=== PATIENT | female | born 1965 | race Caucasian/White ===

== ENCOUNTER 2021-01-08 12:36 | Inpatient (IN) | payer OTHER ==
[2021-01-08] MEDS ORDERED: SODIUM CHLORIDE 1,000 ML IV STA ×4 (12:59→18:54)
[2021-01-08 14:13] LABS: HEMATOCRIT 36.4 % (32.4-45.2); HEMOGLOBIN 12.5 GM/dl (10.7-15.3); MCH 32.3 pg (25.7-33.7); MCHC 34.2 g/dl (32.0-36.0); MEAN CELL VOLUME 94.3 fl (80-96); MEAN PLT VOLUME 7.1 fl (7.5-11.1); PLATELET COUNT 693 K/MM3 (134-434); RBC 3.86 M/mm3 (3.60-5.2); RDW 14.5 % (11.6-15.6); WHITE BLOOD COUNT 26.9 K/mm3 (4.0-10.8)
[2021-01-08 14:14] LABS: ADD RBC MORPHOLOGY YES
[2021-01-08 14:25] LABS: ALBUMIN 2.3 g/dl (3.4-5.0); BILIRUBIN,TOTAL 0.7 mg/dl (0.2-1); CALCIUM 8.7 mg/dl (8.5-10); CREATININE 1.8 mg/dl (0.55-1.3); TOT PROT 5.6 g/dl (6.4-8.2)
[2021-01-08] MEDS ORDERED: PIPERACILLIN/TAZOB 2.25 GM 2.25 GM in DEXTROSE 5%-WATER - 50 ML IVPB ONE (14:31)
[2021-01-08] MEDS ORDERED: PIPERACILLIN/TAZOBACTAM 2.25 GM VIAL IVPB ONE (14:54)
[2021-01-08] MEDS ORDERED: DEXTROSE 5%-WATER - 50 ML IVPB ONE (14:54)
[2021-01-08 14:59] LABS: ACTIVATED PTT 24.3 SECONDS (25.2-36.5)
[2021-01-08 15:03] LABS: INR 1.15 (0.82-1.09); PROTHROMBIN TIME (PATIENT) 12.8 SEC (10.2-13.0)
[2021-01-08 16:51] LABS: LACTIC ACID 2.6 mmol/L (0.4-2.0)
[2021-01-08 16:59] LABS: HEMATOCRIT 30.5 % (32.4-45.2); HEMOGLOBIN 10.2 GM/dl (10.7-15.3); MCH 31.5 pg (25.7-33.7); MCHC 33.4 g/dl (32.0-36.0); MEAN CELL VOLUME 94.3 fl (80-96); MEAN PLT VOLUME 7.1 fl (7.5-11.1); PLATELET COUNT 496 K/MM3 (134-434); RBC 3.24 M/mm3 (3.60-5.2); RDW 13.9 % (11.6-15.6); WHITE BLOOD COUNT 21.6 K/mm3 (4.0-10.8)
[2021-01-08 17:05] LABS: ALBUMIN 1.9 g/dl (3.4-5.0); BILIRUBIN,TOTAL 0.6 mg/dl (0.2-1); CALCIUM 7.7 mg/dl (8.5-10); CREATININE 1.5 mg/dl (0.55-1.3); TOT PROT 4.4 g/dl (6.4-8.2)
[2021-01-08] MEDS ORDERED: ACETAMINOPHEN INJECTION 100 ML IVPB ONE (17:58)
[2021-01-08] MEDS ORDERED: ACETAMINOPHEN 1000 MG/100 ML VIAL (NON FORMULARY) IVPB ONE (18:00)
[2021-01-08 18:29] LABS: PLATELET ESTIMATE SLT INCREASE
[2021-01-08] MEDS ORDERED: VANCOMYCIN 1 GM in D5W (PRE-DOCKED) 1,000 MG/250 ML IVPB ONE (21:22)
[2021-01-08] MEDS ORDERED: MUPIROCIN 2% TOPICAL OINTMENT FOR DECOLONIZATION NS SCH (22:00)
[2021-01-08] MEDS ORDERED: LACTATED RINGERS SOLUTION 1000 ML INFUS.BAG IV ONE (23:45)
[2021-01-09] MEDS ORDERED: VASOPRESSIN 40 UNITS in SODIUM CHLORIDE 98 ML IVPB SCH (02:15)
[2021-01-09] MEDS ORDERED: PIPERACILLIN/TAZOBACTAM 3.375 GM VIAL IVPB ONE ×2 (02:33→09:12)
[2021-01-09] MEDS ORDERED: DEXTROSE 5%-WATER - 50 ML IVPB ONE ×3 (02:34→16:29)
[2021-01-09] MEDS ORDERED: VASOPRESSIN 20 UNITS/ML VIAL IV ONE (02:34)
[2021-01-09] MEDS: PIPERACILLIN/TAZOB 3.375 GM 3.375 GM in DEXTROSE 5%-WATER - 50 ML IVPB SCH ×4 (02:45→19:58)
[2021-01-09] MEDS: MUPIROCIN 2% TOPICAL OINTMENT FOR DECOLONIZATION NS SCH ×3 (03:13→21:41)
[2021-01-09] MEDS ORDERED: LOPERAMIDE HCL 1 MG/5 ML UNIT DOSE CUP PO ONE (03:30)
[2021-01-09] MEDS ORDERED: PT OWN MED DRAWER 7, Y5N ONE ×2 (05:05→21:36)
[2021-01-09] MEDS: HEPARIN NA (PORCINE) 5,000 UNITS/ML 1ML VIAL SQ SCH ×3 (05:37→21:40)
[2021-01-09] MEDS: LORazepam 1 MG TABLET PO PRN ×2 (06:37→16:49)
[2021-01-09] MEDS ORDERED: LORazepam 1 MG TABLET PO SCH (10:00)
[2021-01-09] MEDS ORDERED: LACTATED RINGERS SOLUTION 1,000 ML/1,000 ML INFUS.BAG IV SCH (10:30)
[2021-01-09] MEDS ORDERED: ACETAMINOPHEN 1000 MG/100 ML VIAL (NON FORMULARY) IVPB ONE ×2 (12:04→18:19)
[2021-01-09] MEDS ORDERED: DICYCLOMINE HCL 10 MG CAPSULE PO ONE (14:30)
[2021-01-09] MEDS: POLYETHYLENE GLYCOL 3350 119 GM BTL PO SCH ×3 (15:01→22:00)
[2021-01-09] MEDS: SODIUM CHLORIDE 1,000 ML IV SCH (15:01)
[2021-01-09] MEDS ORDERED: PIPERACILLIN/TAZOBACTAM 2.25 GM VIAL IVPB ONE (16:29)
[2021-01-09] MEDS ORDERED: NOREPINEPHRINE BITARTRATE 4 MG/4 ML ML IV ONE (16:38)
[2021-01-09] MEDS: NOREPINEPHRINE NS PREMIX 8,000 MCG/500 ML BAG IVPB SCH (16:49)
[2021-01-09] MEDS: PIPERACILLIN/TAZOB 2.25 GM 2.25 GM in DEXTROSE 5%-WATER - 50 ML IVPB SCH (17:12)
[2021-01-09] MEDS: CHLORHEXIDINE GLUCONATE 4% CLEANSER FOR DECOLONIZATION TP SCH (21:41)
[2021-01-09] MEDS ORDERED: CHLORHEXIDINE GLUCONATE 4% CLEANSER FOR DECOLONIZATION TP SCH (22:00)
[2021-01-10] MEDS ORDERED: PIPERACILLIN/TAZOBACTAM 2.25 GM VIAL IVPB ONE ×2 (00:23→09:18)
[2021-01-10] MEDS ORDERED: DEXTROSE 5%-WATER - 50 ML IVPB ONE ×3 (00:23→13:25)
[2021-01-10] MEDS: LORazepam 1 MG TABLET PO PRN (00:29)
[2021-01-10] MEDS: SODIUM CHLORIDE 1,000 ML IV SCH (00:36)
[2021-01-10] MEDS: PIPERACILLIN/TAZOB 2.25 GM 2.25 GM in DEXTROSE 5%-WATER - 50 ML IVPB SCH ×2 (01:05→09:43)
[2021-01-10] MEDS ORDERED: PT OWN MED DRAWER 7, Y5N ONE ×2 (06:00→21:28)
[2021-01-10] MEDS: HEPARIN NA (PORCINE) 5,000 UNITS/ML 1ML VIAL SQ SCH ×3 (06:06→21:33)
[2021-01-10] MEDS: VANCOMYCIN 250 MG/5 ML ORAL SOLUTION PO SCH ×3 (06:16→17:57)
[2021-01-10 06:48] LABS: BASO % 0.1 % (0-2.0); EOS % 0.2 % (0-4.5); HEMATOCRIT 31.1 % (32.4-45.2); HEMOGLOBIN 10.6 GM/dL (10.7-15.3); LYMPH % 3.6 % (8-40); MCH 31.8 pg (25.7-33.7); MCHC 33.9 g/dl (32.0-36.0); MEAN CELL VOLUME 93.8 fl (80-96); MEAN PLT VOLUME 7.1 fl (7.5-11.1); MONO % 9.1 % (3.8-10.2); PLATELET COUNT 533 K/MM3 (134-434); RBC 3.32 M/mm3 (3.60-5.2); RDW 14.5 % (11.6-15.6); WHITE BLOOD COUNT 11.6 K/mm3 (4.0-10.0)
[2021-01-10 07:06] LABS: ALBUMIN 1.8 g/dl (3.4-5.0); BLOOD UREA NITROGEN 27.1 mg/dL (7-18)
[2021-01-10 07:07] LABS: CALCIUM 8.3 mg/dL (8.5-10.1)
[2021-01-10 07:08] LABS: MAGNESIUM 2.1 mg/dL (1.8-2.4)
[2021-01-10 07:09] LABS: CREATININE 0.6 mg/dL (0.55-1.3); PHOSPHOROUS 2.3 mg/dL (2.5-4.9)
[2021-01-10 07:10] LABS: BILIRUBIN,TOTAL 0.8 mg/dL (0.2-1); TOT PROT 4.5 g/dl (6.4-8.2)
[2021-01-10] MEDS: MUPIROCIN 2% TOPICAL OINTMENT FOR DECOLONIZATION NS SCH ×2 (09:44→21:34)
[2021-01-10] MEDS ORDERED: LACTATED RINGERS SOLUTION 1000 ML INFUS.BAG IV STA ×3 (10:14→12:13)
[2021-01-10] MEDS: POLYETHYLENE GLYCOL 3350 119 GM BTL PO SCH ×2 (10:23→21:33)
[2021-01-10] MEDS ORDERED: LORazepam 2 MG/ML SDV VIAL IVPUSH ONE (12:30)
[2021-01-10] MEDS: NAPH,MB-DB/K PH,MBDB POWDER PACKET PO SCH ×3 (12:45→21:33)
[2021-01-10] MEDS ORDERED: LACTATED RINGERS SOLUTION 1,000 ML/1,000 ML INFUS.BAG IV STA ×2 (13:14→16:15)
[2021-01-10] MEDS ORDERED: cefTRIAXone SODIUM 1 GM VIAL ONE (13:25)
[2021-01-10] MEDS: LACTATED RINGERS SOLUTION 1,000 ML/1,000 ML INFUS.BAG IV SCH (13:39)
[2021-01-10] MEDS: CEFTRIAXONE 1 GM in DEXTROSE 5%-WATER - 50 ML IVPB SCH (15:12)
[2021-01-10] MEDS ORDERED: LORazepam 2 MG/ML SDV VIAL ONE (17:56)
[2021-01-10] MEDS: NOREPINEPHRINE NS PREMIX 8,000 MCG/500 ML BAG IVPB SCH (17:57)
[2021-01-10] MEDS ORDERED: ONDANSETRON 4 MG/2 ML VIAL IVPUSH STA (19:55)
[2021-01-10] MEDS ORDERED: DEXMEDETOMIDINE IN 0.9 % NACL 400 MCG/100 ML VIAL IVPB SCH (20:00)
[2021-01-10] MEDS: CHLORHEXIDINE GLUCONATE 4% CLEANSER FOR DECOLONIZATION TP SCH (21:34)
[2021-01-11] MEDS: VANCOMYCIN 250 MG/5 ML ORAL SOLUTION PO SCH ×5 (00:10→23:00)
[2021-01-11] MEDS: LACTATED RINGERS SOLUTION 1,000 ML/1,000 ML INFUS.BAG IV SCH ×2 (02:15→09:33)
[2021-01-11] MEDS: HEPARIN NA (PORCINE) 5,000 UNITS/ML 1ML VIAL SQ SCH ×3 (05:35→21:20)
[2021-01-11 06:26] LABS: CALCIUM 7.9 mg/dL (8.5-10.1)
[2021-01-11 06:28] LABS: BLOOD UREA NITROGEN 21.5 mg/dL (7-18); MAGNESIUM 1.7 mg/dL (1.8-2.4)
[2021-01-11 06:31] LABS: CREATININE 0.6 mg/dL (0.55-1.3); PHOSPHOROUS 2.6 mg/dL (2.5-4.9)
[2021-01-11 06:32] LABS: BILIRUBIN,TOTAL 0.5 mg/dL (0.2-1)
[2021-01-11] MEDS: NOREPINEPHRINE NS PREMIX 8,000 MCG/500 ML BAG IVPB SCH ×2 (06:32→20:00)
[2021-01-11 06:33] LABS: TOT PROT 3.9 g/dl (6.4-8.2)
[2021-01-11] MEDS ORDERED: LACTATED RINGERS SOLUTION 1,000 ML/1,000 ML INFUS.BAG IV STA (06:35)
[2021-01-11 06:38] LABS: ALBUMIN 1.4 g/dl (3.4-5.0)
[2021-01-11] MEDS ORDERED: DEXTROSE 5%-WATER - 50 ML IVPB ONE (09:30)
[2021-01-11] MEDS ORDERED: cefTRIAXone SODIUM 1 GM VIAL ONE (09:30)
[2021-01-11] MEDS: POLYETHYLENE GLYCOL 3350 119 GM BTL PO SCH ×2 (09:33→21:03)
[2021-01-11] MEDS: MUPIROCIN 2% TOPICAL OINTMENT FOR DECOLONIZATION NS SCH ×2 (09:33→21:22)
[2021-01-11] MEDS: CEFTRIAXONE 1 GM in DEXTROSE 5%-WATER - 50 ML IVPB SCH (09:33)
[2021-01-11] MEDS ORDERED: SODIUM CHLORIDE 0.9% 500 ML INFUS.BAG IV ONE (09:52)
[2021-01-11] MEDS ORDERED: MAGNESIUM SULF 50% (8.12 MEQ/2 ML-1 GM VIAL) IVPB ONE (11:00)
[2021-01-11] MEDS ORDERED: VANCOMYCIN 250 MG/5 ML ORAL SOLUTION PO SCH (12:00)
[2021-01-11] MEDS ORDERED: VASOPRESSIN 40 UNITS in SODIUM CHLORIDE 98 ML IVPB SCH (12:15)
[2021-01-11] MEDS: ACETAMINOPHEN 325 MG TABLET (FP) PO PRN (12:40)
[2021-01-11] MEDS ORDERED: PT OWN MED DRAWER 7, Y5N ONE (13:17)
[2021-01-11] MEDS: VASOPRESSIN 40 UNITS in SODIUM CHLORIDE 98 ML IVPB SCH (13:30)
[2021-01-11 14:36] LABS: HEMATOCRIT 29.9 % (32.4-45.2); HEMOGLOBIN 9.8 GM/dL (10.7-15.3); MCH 31.5 pg (25.7-33.7); MCHC 32.7 g/dl (32.0-36.0); MEAN CELL VOLUME 96.3 fl (80-96); PLATELET COUNT 473 K/MM3 (134-434); RDW 14.7 % (11.6-15.6); WHITE BLOOD COUNT 15.8 K/mm3 (4.0-10.0)
[2021-01-11] MEDS: ONDANSETRON 4 MG/2 ML VIAL IVPUSH PRN (15:00)
[2021-01-11 18:41] LABS: CALCIUM 8.1 mg/dL (8.5-10.1)
[2021-01-11 18:42] LABS: BLOOD UREA NITROGEN 17.4 mg/dL (7-18); MAGNESIUM 2.1 mg/dL (1.8-2.4)
[2021-01-11 18:45] LABS: CREATININE 0.4 mg/dL (0.55-1.3)
[2021-01-11] MEDS: LORazepam 1 MG TABLET PO PRN (21:20)
[2021-01-11] MEDS: MAG HYDROX/AL HYDROX/SIMETH 30 ML UNIT-DOSE CUP PO PRN (21:20)
[2021-01-11] MEDS: CHLORHEXIDINE GLUCONATE 4% CLEANSER FOR DECOLONIZATION TP SCH (21:22)
[2021-01-11] MEDS: MELATONIN 1 MG TABLET PO SCH (23:00)
[2021-01-12] MEDS: LACTATED RINGERS SOLUTION 1,000 ML/1,000 ML INFUS.BAG IV SCH ×2 (00:05→19:41)
[2021-01-12] MEDS: NOREPINEPHRINE NS PREMIX 8,000 MCG/500 ML BAG IVPB SCH ×3 (01:50→19:41)
[2021-01-12] MEDS: VANCOMYCIN 250 MG/5 ML ORAL SOLUTION PO SCH ×3 (05:48→17:42)
[2021-01-12] MEDS: HEPARIN NA (PORCINE) 5,000 UNITS/ML 1ML VIAL SQ SCH ×4 (05:48→22:28)
[2021-01-12 06:54] LABS: HEMATOCRIT 27.8 % (32.4-45.2); HEMOGLOBIN 9.4 GM/dL (10.7-15.3); MCH 31.7 pg (25.7-33.7); MCHC 33.8 g/dl (32.0-36.0); MEAN CELL VOLUME 93.5 fl (80-96); MEAN PLT VOLUME 7.1 fl (7.5-11.1); PLATELET COUNT 419 K/MM3 (134-434); RBC 2.97 M/mm3 (3.60-5.2); RDW 14.7 % (11.6-15.6); WHITE BLOOD COUNT 19.5 K/mm3 (4.0-10.0)
[2021-01-12 07:11] LABS: CALCIUM 7.9 mg/dL (8.5-10.1)
[2021-01-12 07:16] LABS: CREATININE 0.4 mg/dL (0.55-1.3)
[2021-01-12 07:18] LABS: MAGNESIUM 1.9 mg/dL (1.8-2.4)
[2021-01-12] MEDS ORDERED: cefTRIAXone SODIUM 1 GM VIAL ONE (08:28)
[2021-01-12] MEDS ORDERED: DEXTROSE 5%-WATER - 50 ML IVPB ONE (08:28)
[2021-01-12] MEDS ORDERED: PT OWN MED DRAWER 7, Y5N ONE ×3 (08:28→20:32)
[2021-01-12] MEDS: MUPIROCIN 2% TOPICAL OINTMENT FOR DECOLONIZATION NS SCH ×2 (09:31→21:38)
[2021-01-12] MEDS: POLYETHYLENE GLYCOL 3350 119 GM BTL PO SCH ×2 (09:31→22:28)
[2021-01-12] MEDS: CEFTRIAXONE 1 GM in DEXTROSE 5%-WATER - 50 ML IVPB SCH (09:31)
[2021-01-12] MEDS ORDERED: NOREPINEPHRINE BITARTRATE 4 MG/4 ML ML IV ONE (12:07)
[2021-01-12] MEDS ORDERED: SODIUM CHLORIDE 1,000 ML IV SCH (14:45)
[2021-01-12] MEDS ORDERED: FLUDROCORTISONE ACETATE 0.1 MG TABLET (FP) PO SCH (15:15)
[2021-01-12] MEDS: HYDROCORTISONE SOD SUCCINATE 100 MG/2 ML VIAL IVPUSH SCH ×2 (15:50→21:38)
[2021-01-12] MEDS: LORazepam 1 MG TABLET PO PRN ×2 (15:50→22:28)
[2021-01-12] MEDS: FLUDROCORTISONE ACETATE 0.1 MG TABLET (FP) PO SCH (15:50)
[2021-01-12] MEDS: VASOPRESSIN 40 UNITS in SODIUM CHLORIDE 98 ML IVPB SCH (16:06)
[2021-01-12] MEDS: CHLORHEXIDINE GLUCONATE 4% CLEANSER FOR DECOLONIZATION TP SCH (21:38)
[2021-01-12] MEDS: MELATONIN 1 MG TABLET PO SCH ×2 (21:39→22:28)
[2021-01-12] MEDS ORDERED: LACTATED RINGERS SOLUTION 1000 ML INFUS.BAG IV ONE (21:40)
[2021-01-12] MEDS ORDERED: SODIUM CHLORIDE 0.9% 500 ML INFUS.BAG IV ONE (21:42)
[2021-01-13] MEDS: VANCOMYCIN 250 MG/5 ML ORAL SOLUTION PO SCH ×6 (00:30→23:19)
[2021-01-13] MEDS: HYDROCORTISONE SOD SUCCINATE 100 MG/2 ML VIAL IVPUSH SCH ×4 (02:44→20:08)
[2021-01-13 03:36] LABS: BASO % 0.1 % (0-2.0); EOS % 0.1 % (0-4.5); HEMATOCRIT 30.4 % (32.4-45.2); HEMOGLOBIN 10.1 GM/dL (10.7-15.3); LYMPH % 1.9 % (8-40); MCH 30.9 pg (25.7-33.7); MCHC 33.3 g/dl (32.0-36.0); MEAN CELL VOLUME 92.9 fl (80-96); MEAN PLT VOLUME 6.6 fl (7.5-11.1); NEUT % 95.9 % (42.8-82.8); PLATELET COUNT 359 K/MM3 (134-434); RBC 3.28 M/mm3 (3.60-5.2); RDW 15.3 % (11.6-15.6); WHITE BLOOD COUNT 20.8 K/mm3 (4.0-10.0)
[2021-01-13 03:44] LABS: INR 1.11 (0.83-1.09); PROTHROMBIN TIME (PATIENT) 13.4 SEC (9.7-13.0)
[2021-01-13 03:51] LABS: ALBUMIN 1.4 g/dl (3.4-5.0); BLOOD UREA NITROGEN 14.7 mg/dL (7-18); CALCIUM 7.6 mg/dL (8.5-10.1); MAGNESIUM 1.9 mg/dL (1.8-2.4)
[2021-01-13 03:54] LABS: CREATININE 0.3 mg/dL (0.55-1.3); PHOSPHOROUS 1.5 mg/dL (2.5-4.9)
[2021-01-13 03:56] LABS: BILIRUBIN,TOTAL 0.3 mg/dL (0.2-1); TOT PROT 3.7 g/dl (6.4-8.2)
[2021-01-13] MEDS: HEPARIN NA (PORCINE) 5,000 UNITS/ML 1ML VIAL SQ SCH ×3 (06:40→22:21)
[2021-01-13] MEDS ORDERED: SODIUM CHLORIDE 1 GM TABLET PO ONE (07:02)
[2021-01-13] MEDS ORDERED: SODIUM CHLORIDE 0.9% 1000 ML INFUS.BAG IV ONE (07:02)
[2021-01-13] MEDS ORDERED: PT OWN MED DRAWER 7, Y5N ONE ×4 (08:31→16:11)
[2021-01-13 09:01] LABS: ANISOCYTOSIS 0; MACROCYTOSIS 0; OVALOCYTE 1+; PLATELET ESTIMATE NORMAL
[2021-01-13] MEDS: FLUDROCORTISONE ACETATE 0.1 MG TABLET (FP) PO SCH (09:36)
[2021-01-13] MEDS: MUPIROCIN 2% TOPICAL OINTMENT FOR DECOLONIZATION NS SCH ×2 (09:39→22:21)
[2021-01-13] MEDS: POLYETHYLENE GLYCOL 3350 119 GM BTL PO SCH ×2 (09:44→22:22)
[2021-01-13] MEDS ORDERED: FUROSEMIDE 40 MG/4 ML INJECTABLE VIAL IVPUSH ONE (10:52)
[2021-01-13] MEDS ORDERED: POTASSIUM PHOSPHATE 30 MM in DEXTROSE 5%-WATER - 250 ML IVPB ONE (10:55)
[2021-01-13] MEDS: SODIUM CHLORIDE 1,000 ML IV SCH (12:01)
[2021-01-13] MEDS ORDERED: SODIUM PHOSPHATE - 40 MM in SODIUM CHLORIDE 500 ML IVPB ONE (12:45)
[2021-01-13 13:16] LABS: CALCIUM 7.9 mg/dL (8.5-10.1)
[2021-01-13] MEDS: VASOPRESSIN 40 UNITS in SODIUM CHLORIDE 98 ML IVPB SCH ×2 (13:18→16:26)
[2021-01-13 13:21] LABS: CREATININE 0.4 mg/dL (0.55-1.3)
[2021-01-13 17:24] LABS: BASO % 0.1 % (0-2.0); HEMATOCRIT 29.6 % (32.4-45.2); LYMPH % 3.1 % (8-40); MCH 31.3 pg (25.7-33.7); MCHC 33.6 g/dl (32.0-36.0); MEAN CELL VOLUME 93.2 fl (80-96); MEAN PLT VOLUME 7.1 fl (7.5-11.1); MONO % 3.1 % (3.8-10.2); NEUT % 93.7 % (42.8-82.8); PLATELET COUNT 318 K/MM3 (134-434); RBC 3.18 M/mm3 (3.60-5.2); RDW 15.3 % (11.6-15.6); WHITE BLOOD COUNT 16.3 K/mm3 (4.0-10.0)
[2021-01-13] MEDS: NOREPINEPHRINE NS PREMIX 8,000 MCG/500 ML BAG IVPB SCH (17:30)
[2021-01-13] MEDS ORDERED: PROPOFOL 20 ML ONE (18:03)
[2021-01-13] MEDS ORDERED: ETOMIDATE 20 MG/10 ML AMPUL IVPUSH ONE (18:03)
[2021-01-13] MEDS ORDERED: MIDAZOLAM HCL 2 MG/2 ML SINGLE DOSE VIAL ONE (18:03)
[2021-01-13] MEDS ORDERED: KETAMINE HCL 200 MG/20 ML VIAL ONE (18:03)
[2021-01-13] MEDS ORDERED: fentaNYL CITRATE 250 MCG/5 ML VIAL ONE (18:03)
[2021-01-13] MEDS ORDERED: SUCCINYLCHOLINE CHLORIDE 200 MG/10 ML SYRINGE ONE (18:03)
[2021-01-13] MEDS ORDERED: ROCURONIUM BROMIDE 50 MG/5 ML SYRINGE ONE (18:03)
[2021-01-13 18:40] LABS: BLOOD UREA NITROGEN 16.9 mg/dL (7-18); CALCIUM 7.7 mg/dL (8.5-10.1); MAGNESIUM 1.9 mg/dL (1.8-2.4)
[2021-01-13 18:41] LABS: ALBUMIN 1.4 g/dl (3.4-5.0)
[2021-01-13 18:45] LABS: BILIRUBIN,TOTAL 0.4 mg/dL (0.2-1); CREATININE 0.4 mg/dL (0.55-1.3); PHOSPHOROUS 2.3 mg/dL (2.5-4.9); TOT PROT 3.6 g/dl (6.4-8.2)
[2021-01-13] MEDS ORDERED: DEXTROSE 5%-WATER - 50 ML IVPB ONE (19:00)
[2021-01-13] MEDS ORDERED: PIPERACILLIN/TAZOBACTAM 3.375 GM VIAL IVPB ONE (19:00)
[2021-01-13] MEDS: PIPERACILLIN/TAZOB 3.375 GM 3.375 GM in DEXTROSE 5%-WATER - 50 ML IVPB SCH (19:40)
[2021-01-13] MEDS: MAG HYDROX/AL HYDROX/SIMETH 30 ML UNIT-DOSE CUP PO PRN (19:41)
[2021-01-13] MEDS: LORazepam 1 MG TABLET PO PRN (19:41)
[2021-01-13] MEDS: CHLORHEXIDINE GLUCONATE 4% CLEANSER FOR DECOLONIZATION TP SCH (22:21)
[2021-01-13] MEDS: MELATONIN 1 MG TABLET PO SCH (22:22)
[2021-01-14] MEDS ORDERED: DEXTROSE 5%-WATER - 50 ML IVPB ONE (00:49)
[2021-01-14] MEDS ORDERED: PIPERACILLIN/TAZOBACTAM 3.375 GM VIAL IVPB ONE (00:49)
[2021-01-14] MEDS: PIPERACILLIN/TAZOB 3.375 GM 3.375 GM in DEXTROSE 5%-WATER - 50 ML IVPB SCH (01:09)
[2021-01-14] MEDS: HYDROCORTISONE SOD SUCCINATE 100 MG/2 ML VIAL IVPUSH SCH ×4 (02:45→20:33)
[2021-01-14] MEDS: HEPARIN NA (PORCINE) 5,000 UNITS/ML 1ML VIAL SQ SCH ×3 (05:00→21:06)
[2021-01-14] MEDS: VANCOMYCIN 250 MG/5 ML ORAL SOLUTION PO SCH ×3 (05:00→17:14)
[2021-01-14] MEDS: MAG HYDROX/AL HYDROX/SIMETH 30 ML UNIT-DOSE CUP PO PRN ×3 (05:00→18:36)
[2021-01-14 06:46] LABS: BASO % 0.1 % (0-2.0); HEMATOCRIT 29.1 % (32.4-45.2); LYMPH % 2.3 % (8-40); MCH 31.5 pg (25.7-33.7); MCHC 34.4 g/dl (32.0-36.0); MEAN CELL VOLUME 91.5 fl (80-96); NEUT % 94.6 % (42.8-82.8); PLATELET COUNT 349 K/MM3 (134-434); RBC 3.18 M/mm3 (3.60-5.2); RDW 15.4 % (11.6-15.6); WHITE BLOOD COUNT 17.4 K/mm3 (4.0-10.0)
[2021-01-14 06:59] LABS: CALCIUM 7.8 mg/dL (8.5-10.1)
[2021-01-14 07:01] LABS: ALBUMIN 1.5 g/dl (3.4-5.0); MAGNESIUM 1.8 mg/dL (1.8-2.4)
[2021-01-14 07:03] LABS: PHOSPHOROUS 2.2 mg/dL (2.5-4.9)
[2021-01-14 07:06] LABS: BILIRUBIN,TOTAL 0.3 mg/dL (0.2-1); TOT PROT 3.7 g/dl (6.4-8.2)
[2021-01-14 07:13] LABS: CREATININE 0.3 mg/dL (0.55-1.3)
[2021-01-14] MEDS ORDERED: PT OWN MED DRAWER 7, Y5N ONE ×2 (08:36→23:44)
[2021-01-14] MEDS: FLUDROCORTISONE ACETATE 0.1 MG TABLET (FP) PO SCH (09:03)
[2021-01-14] MEDS: POLYETHYLENE GLYCOL 3350 119 GM BTL PO SCH ×2 (09:04→21:00)
[2021-01-14] MEDS: NOREPINEPHRINE NS PREMIX 8,000 MCG/500 ML BAG IVPB SCH ×3 (09:04→18:38)
[2021-01-14] MEDS: LORazepam 1 MG TABLET PO PRN ×2 (09:05→20:32)
[2021-01-14 09:10] LABS: ANISOCYTOSIS 0; MACROCYTOSIS 0; PLATELET ESTIMATE NORMAL
[2021-01-14] MEDS ORDERED: POTASSIUM PHOSPHATE 30 MM in DEXTROSE 5%-WATER - 250 ML IVPB ONE (10:00)
[2021-01-14] MEDS: ACETAMINOPHEN 325 MG TABLET (FP) PO PRN (10:34)
[2021-01-14] MEDS ORDERED: SODIUM PHOSPHATE - 20 MM in SODIUM CHLORIDE 250 ML IVPB ONE (13:34)
[2021-01-14] MEDS: SODIUM CHLORIDE 1,000 ML IV SCH (14:01)
[2021-01-14] MEDS: VASOPRESSIN 40 UNITS in SODIUM CHLORIDE 98 ML IVPB SCH ×3 (14:02→22:08)
[2021-01-14] MEDS: CHLORHEXIDINE GLUCONATE 4% CLEANSER FOR DECOLONIZATION TP SCH (21:02)
[2021-01-14] MEDS: MELATONIN 1 MG TABLET PO SCH (21:06)
[2021-01-15] MEDS: SODIUM CHLORIDE 1,000 ML IV SCH ×4 (00:30→13:37)
[2021-01-15] MEDS: VANCOMYCIN 250 MG/5 ML ORAL SOLUTION PO SCH ×4 (00:34→17:57)
[2021-01-15] MEDS ORDERED: VASOPRESSIN 40 UNITS in SODIUM CHLORIDE 98 ML IVPB SCH (01:14)
[2021-01-15] MEDS: HYDROCORTISONE SOD SUCCINATE 100 MG/2 ML VIAL IVPUSH SCH ×4 (02:56→21:34)
[2021-01-15] MEDS: NOREPINEPHRINE NS PREMIX 8,000 MCG/500 ML BAG IVPB SCH ×3 (02:56→17:56)
[2021-01-15] MEDS: VASOPRESSIN 40 UNITS in SODIUM CHLORIDE 98 ML IVPB SCH ×2 (03:25→11:45)
[2021-01-15 06:13] LABS: HEMATOCRIT 28.8 % (32.4-45.2); HEMOGLOBIN 9.8 GM/dL (10.7-15.3); LYMPH % 2.8 % (8-40); MCH 31.5 pg (25.7-33.7); MEAN CELL VOLUME 92.5 fl (80-96); MEAN PLT VOLUME 6.9 fl (7.5-11.1); MONO % 4.8 % (3.8-10.2); NEUT % 92.4 % (42.8-82.8); PLATELET COUNT 306 K/MM3 (134-434); RBC 3.11 M/mm3 (3.60-5.2); RDW 15.4 % (11.6-15.6); WHITE BLOOD COUNT 14.9 K/mm3 (4.0-10.0)
[2021-01-15] MEDS: HEPARIN NA (PORCINE) 5,000 UNITS/ML 1ML VIAL SQ SCH ×3 (06:19→21:11)
[2021-01-15 06:49] LABS: ALBUMIN 1.5 g/dl (3.4-5.0); BLOOD UREA NITROGEN 20.6 mg/dL (7-18); CALCIUM 7.3 mg/dL (8.5-10.1)
[2021-01-15 06:52] LABS: BILIRUBIN,TOTAL 0.2 mg/dL (0.2-1); CREATININE 0.6 mg/dL (0.55-1.3); PHOSPHOROUS 2.3 mg/dL (2.5-4.9)
[2021-01-15 06:53] LABS: TOT PROT 3.6 g/dl (6.4-8.2)
[2021-01-15] MEDS ORDERED: PT OWN MED DRAWER 7, Y5N ONE (08:00)
[2021-01-15 08:29] LABS: ANISOCYTOSIS 0; MACROCYTOSIS 0; PLATELET ESTIMATE NORMAL
[2021-01-15] MEDS: POLYETHYLENE GLYCOL 3350 119 GM BTL PO SCH ×2 (09:23→21:11)
[2021-01-15] MEDS: FLUDROCORTISONE ACETATE 0.1 MG TABLET (FP) PO SCH (09:23)
[2021-01-15] MEDS ORDERED: PANTOPRAZOLE SODIUM 40 MG VIAL IVPUSH SCH (10:15)
[2021-01-15] MEDS ORDERED: NAPH,MB-DB/K PH,MBDB POWDER PACKET PO ONE (10:30)
[2021-01-15] MEDS: MAG HYDROX/AL HYDROX/SIMETH 30 ML UNIT-DOSE CUP PO PRN (11:45)
[2021-01-15] MEDS ORDERED: SODIUM CHLORIDE 1,000 ML IV STA (11:55)
[2021-01-15] MEDS: ALPRAZolam 0.25 MG TABLET PO PRN ×2 (13:37→21:35)
[2021-01-15] MEDS ORDERED: SODIUM PHOSPHATE - 20 MM in SODIUM CHLORIDE 250 ML IVPB ONE (14:54)
[2021-01-15] MEDS: MELATONIN 1 MG TABLET PO SCH (21:11)
[2021-01-15] MEDS: CHLORHEXIDINE GLUCONATE 4% CLEANSER FOR DECOLONIZATION TP SCH (21:11)
[2021-01-16] MEDS: VANCOMYCIN 250 MG/5 ML ORAL SOLUTION PO SCH ×4 (00:04→18:05)
[2021-01-16] MEDS: ACETAMINOPHEN 325 MG TABLET (FP) PO PRN (01:25)
[2021-01-16] MEDS: ONDANSETRON 4 MG/2 ML VIAL IVPUSH PRN (02:37)
[2021-01-16] MEDS: HYDROCORTISONE SOD SUCCINATE 100 MG/2 ML VIAL IVPUSH SCH ×4 (03:30→21:17)
[2021-01-16] MEDS: VASOPRESSIN 40 UNITS in SODIUM CHLORIDE 98 ML IVPB SCH (03:31)
[2021-01-16] MEDS ORDERED: PT OWN MED DRAWER 7, Y5N ONE ×6 (05:32→21:25)
[2021-01-16] MEDS: HEPARIN NA (PORCINE) 5,000 UNITS/ML 1ML VIAL SQ SCH ×3 (06:36→21:17)
[2021-01-16 07:21] LABS: BASO % 0.1 % (0-2.0); HEMATOCRIT 30.8 % (32.4-45.2); HEMOGLOBIN 10.1 GM/dL (10.7-15.3); LYMPH % 1.7 % (8-40); MCH 30.8 pg (25.7-33.7); MEAN CELL VOLUME 93.4 fl (80-96); MEAN PLT VOLUME 7.4 fl (7.5-11.1); MONO % 4.2 % (3.8-10.2); PLATELET COUNT 308 K/MM3 (134-434); RDW 15.6 % (11.6-15.6); WHITE BLOOD COUNT 18.1 K/mm3 (4.0-10.0)
[2021-01-16 07:27] LABS: ALBUMIN 1.6 g/dl (3.4-5.0); BLOOD UREA NITROGEN 21.3 mg/dL (7-18); CALCIUM 7.7 mg/dL (8.5-10.1); MAGNESIUM 2.1 mg/dL (1.8-2.4)
[2021-01-16 07:30] LABS: CREATININE 0.7 mg/dL (0.55-1.3); PHOSPHOROUS 2.7 mg/dL (2.5-4.9)
[2021-01-16 07:32] LABS: TOT PROT 3.8 g/dl (6.4-8.2)
[2021-01-16 07:35] LABS: BILIRUBIN,TOTAL 0.2 mg/dL (0.2-1)
[2021-01-16] MEDS: ALPRAZolam 0.25 MG TABLET PO PRN ×2 (09:42→20:15)
[2021-01-16] MEDS: POLYETHYLENE GLYCOL 3350 119 GM BTL PO SCH ×2 (09:43→21:18)
[2021-01-16] MEDS: FAMOTIDINE 40 MG/5 ML ORAL SUSPENSION PO SCH (09:43)
[2021-01-16] MEDS: FLUDROCORTISONE ACETATE 0.1 MG TABLET (FP) PO SCH (09:49)
[2021-01-16] MEDS ORDERED: SODIUM CHLORIDE 1,000 ML IV STA (10:08)
[2021-01-16] MEDS ORDERED: SODIUM CHLORIDE 500 ML IV STA (10:08)
[2021-01-16 10:49] LABS: ANISOCYTOSIS 0; MACROCYTOSIS 0; PLATELET ESTIMATE NORMAL; TOXIC GRANULATION 2+
[2021-01-16] MEDS: SODIUM CHLORIDE 1,000 ML IV SCH (12:39)
[2021-01-16] MEDS: NOREPINEPHRINE NS PREMIX 8,000 MCG/500 ML BAG IVPB SCH (16:00)
[2021-01-16] MEDS: CHLORHEXIDINE GLUCONATE 4% CLEANSER FOR DECOLONIZATION TP SCH (21:17)
[2021-01-16] MEDS: MELATONIN 1 MG TABLET PO SCH (21:17)
[2021-01-17 00:52] LABS: EPI CELLS 2 /uL (0-25.1); HYALINE CASTS 8 /uL (0-3.1); URINE APPEARANCE TURBID; URINE BACTERIA 55 /uL (0-1359); URINE BILIRUBIN NEGATIVE (NEGATIVE); URINE COLOR ORANGE; URINE GLUCOSE (UA) NEGATIVE (NEGATIVE); URINE KETONE NEGATIVE (NEGATIVE); URINE LEUK ESTERASE 3+ (NEGATIVE); URINE NITRITE NEGATIVE (NEGATIVE); URINE PROTEIN 2+ (NEGATIVE); URINE UROBILINOGEN 0.2 mg/dL (0.2-1.0); URINE WBC 12012 /uL (0-25.8)
[2021-01-17] MEDS: HYDROCORTISONE SOD SUCCINATE 100 MG/2 ML VIAL IVPUSH SCH ×4 (02:05→23:04)
[2021-01-17 03:21] LABS: URINE RBC 4906 /uL (0-23.9)
[2021-01-17] MEDS: VANCOMYCIN 250 MG/5 ML ORAL SOLUTION PO SCH ×4 (05:36→17:04)
[2021-01-17] MEDS: HEPARIN NA (PORCINE) 5,000 UNITS/ML 1ML VIAL SQ SCH ×3 (05:36→23:05)
[2021-01-17] MEDS: VASOPRESSIN 40 UNITS in SODIUM CHLORIDE 98 ML IVPB SCH ×3 (05:47→12:00)
[2021-01-17] MEDS: ALPRAZolam 0.25 MG TABLET PO PRN ×2 (06:27→17:04)
[2021-01-17] MEDS ORDERED: VASOPRESSIN 20 UNITS/ML VIAL IV ONE (07:25)
[2021-01-17] MEDS: SODIUM CHLORIDE 1,000 ML IV SCH (07:42)
[2021-01-17] MEDS: NOREPINEPHRINE NS PREMIX 8,000 MCG/500 ML BAG IVPB SCH ×3 (07:43→23:05)
[2021-01-17] MEDS ORDERED: PT OWN MED DRAWER 7, Y5N ONE (09:06)
[2021-01-17] MEDS: LACTOBACILLUS ACIDOPHILUS 1 TABLET PO SCH (09:51)
[2021-01-17] MEDS: FLUDROCORTISONE ACETATE 0.1 MG TABLET (FP) PO SCH (09:52)
[2021-01-17] MEDS: FAMOTIDINE 40 MG/5 ML ORAL SUSPENSION PO SCH (09:52)
[2021-01-17] MEDS: POLYETHYLENE GLYCOL 3350 119 GM BTL PO SCH ×2 (09:52→23:06)
[2021-01-17] MEDS: CHLORHEXIDINE GLUCONATE 4% CLEANSER FOR DECOLONIZATION TP SCH (23:05)
[2021-01-17] MEDS: MELATONIN 1 MG TABLET PO SCH (23:06)
[2021-01-18] MEDS: VANCOMYCIN 250 MG/5 ML ORAL SOLUTION PO SCH ×4 (00:28→17:45)
[2021-01-18] MEDS: HYDROCORTISONE SOD SUCCINATE 100 MG/2 ML VIAL IVPUSH SCH ×3 (01:28→17:45)
[2021-01-18] MEDS: SODIUM CHLORIDE 1,000 ML IV SCH ×3 (01:28→16:08)
[2021-01-18] MEDS: ALPRAZolam 0.25 MG TABLET PO PRN ×2 (01:34→09:45)
[2021-01-18] MEDS: VASOPRESSIN 40 UNITS in SODIUM CHLORIDE 98 ML IVPB SCH ×3 (05:34→22:50)
[2021-01-18] MEDS: HEPARIN NA (PORCINE) 5,000 UNITS/ML 1ML VIAL SQ SCH ×3 (05:35→22:45)
[2021-01-18 07:54] LABS: HEMATOCRIT 29.1 % (32.4-45.2); HEMOGLOBIN 9.7 GM/dL (10.7-15.3); MCHC 33.4 g/dl (32.0-36.0); MEAN CELL VOLUME 92.9 fl (80-96); MEAN PLT VOLUME 7.3 fl (7.5-11.1); PLATELET COUNT 278 K/MM3 (134-434); RBC 3.14 M/mm3 (3.60-5.2); RDW 15.4 % (11.6-15.6); WHITE BLOOD COUNT 11.1 K/mm3 (4.0-10.0)
[2021-01-18 08:12] LABS: ALBUMIN 1.6 g/dl (3.4-5.0); CALCIUM 7.9 mg/dL (8.5-10.1)
[2021-01-18 08:13] LABS: BLOOD UREA NITROGEN 17.6 mg/dL (7-18); MAGNESIUM 2.1 mg/dL (1.8-2.4)
[2021-01-18 08:16] LABS: CREATININE 0.2 mg/dL (0.55-1.3); PHOSPHOROUS 1.3 mg/dL (2.5-4.9)
[2021-01-18 08:17] LABS: BILIRUBIN,TOTAL 0.3 mg/dL (0.2-1); TOT PROT 3.7 g/dl (6.4-8.2)
[2021-01-18] MEDS ORDERED: PT OWN MED DRAWER 7, Y5N ONE (09:25)
[2021-01-18] MEDS: FLUDROCORTISONE ACETATE 0.1 MG TABLET (FP) PO SCH (09:45)
[2021-01-18] MEDS: FAMOTIDINE 40 MG/5 ML ORAL SUSPENSION PO SCH (09:45)
[2021-01-18] MEDS: LACTOBACILLUS ACIDOPHILUS 1 TABLET PO SCH (09:45)
[2021-01-18] MEDS: POLYETHYLENE GLYCOL 3350 119 GM BTL PO SCH ×2 (10:09→22:43)
[2021-01-18] MEDS: MIDODRINE HCL 5 MG TABLET PO SCH ×2 (14:30→17:45)
[2021-01-18] MEDS: ALPRAZolam 1 MG TABLET PO PRN (18:30)
[2021-01-18] MEDS: NOREPINEPHRINE NS PREMIX 8,000 MCG/500 ML BAG IVPB SCH (22:43)
[2021-01-18] MEDS: CHLORHEXIDINE GLUCONATE 4% CLEANSER FOR DECOLONIZATION TP SCH (22:45)
[2021-01-18] MEDS: MELATONIN 1 MG TABLET PO SCH (22:50)
[2021-01-19] MEDS: VANCOMYCIN 250 MG/5 ML ORAL SOLUTION PO SCH ×4 (00:03→18:39)
[2021-01-19] MEDS: HYDROCORTISONE SOD SUCCINATE 100 MG/2 ML VIAL IVPUSH SCH ×3 (01:11→18:39)
[2021-01-19] MEDS: ONDANSETRON 4 MG/2 ML VIAL IVPUSH PRN (01:12)
[2021-01-19] MEDS: ALPRAZolam 1 MG TABLET PO PRN ×3 (01:32→17:52)
[2021-01-19] MEDS: VASOPRESSIN 40 UNITS in SODIUM CHLORIDE 98 ML IVPB SCH ×2 (05:13→13:15)
[2021-01-19 07:51] LABS: HEMATOCRIT 27.3 % (32.4-45.2); HEMOGLOBIN 9.3 GM/dL (10.7-15.3); MCH 31.9 pg (25.7-33.7); MCHC 33.9 g/dl (32.0-36.0); MEAN CELL VOLUME 93.9 fl (80-96); MEAN PLT VOLUME 7.3 fl (7.5-11.1); PLATELET COUNT 256 K/MM3 (134-434); RBC 2.91 M/mm3 (3.60-5.2); RDW 15.7 % (11.6-15.6); WHITE BLOOD COUNT 10.4 K/mm3 (4.0-10.0)
[2021-01-19 07:58] LABS: CHLORIDE 109 mmol/L (98-107); SODIUM 135 mmol/L (136-145)
[2021-01-19 08:08] LABS: CALCIUM 7.3 mg/dL (8.5-10.1)
[2021-01-19 08:09] LABS: ALBUMIN 1.6 g/dl (3.4-5.0); ANION GAP 5 MMOL/L (8-16); BLOOD UREA NITROGEN 16.2 mg/dL (7-18); CO2 21 mmol/L (21-32); GLUCOSE,RANDOM 114 mg/dL (74-106); MAGNESIUM 1.9 mg/dL (1.8-2.4)
[2021-01-19 08:11] LABS: SGPT/ALT 33 U/L (13-61)
[2021-01-19 08:12] LABS: PHOSPHOROUS 1.2 mg/dL (2.5-4.9); SGOT/AST 25 U/L (15-37)
[2021-01-19 08:14] LABS: ALK PHOS 53 U/L (45-117); BILIRUBIN,TOTAL 0.2 mg/dL (0.2-1)
[2021-01-19 08:15] LABS: TOT PROT 3.5 g/dl (6.4-8.2)
[2021-01-19 08:42] LABS: CREATININE < 0.2 mg/dL (0.55-1.3)
[2021-01-19] MEDS ORDERED: POTASSIUM PHOSPHATE 30 MM in SODIUM CHLORIDE 250 ML IVPB ONE (08:50)
[2021-01-19] MEDS ORDERED: PT OWN MED DRAWER 7, Y5N ONE (08:57)
[2021-01-19] MEDS: FLUDROCORTISONE ACETATE 0.1 MG TABLET (FP) PO SCH (09:00)
[2021-01-19] MEDS: LACTOBACILLUS ACIDOPHILUS 1 TABLET PO SCH (09:00)
[2021-01-19] MEDS: FAMOTIDINE 40 MG/5 ML ORAL SUSPENSION PO SCH (09:00)
[2021-01-19] MEDS: MIDODRINE HCL 5 MG TABLET PO SCH ×3 (09:00→17:52)
[2021-01-19] MEDS: SODIUM CHLORIDE 1,000 ML IV SCH ×2 (09:15→11:56)
[2021-01-19] MEDS: POLYETHYLENE GLYCOL 3350 119 GM BTL PO SCH ×2 (09:45→23:22)
[2021-01-19] MEDS: HEPARIN NA (PORCINE) 5,000 UNITS/ML 1ML VIAL SQ SCH ×3 (13:15→23:23)
[2021-01-19] MEDS ORDERED: MIDODRINE HCL 5 MG TABLET PO SCH (13:47)
[2021-01-19] MEDS ORDERED: BENZOCAINE/MENTH/CETYLPYRD CL 1 EACH LOZENGE MM PRN (15:56)
[2021-01-19] MEDS ORDERED: ALPRAZolam 0.25 MG TABLET PO ONE (17:46)
[2021-01-19] MEDS: NOREPINEPHRINE NS PREMIX 8,000 MCG/500 ML BAG IVPB SCH (17:53)
[2021-01-19 18:36] LABS: IRON SERUM 45 ug/dL (50-175); TOTAL IRON BINDING CAPACITY 114 ug/dL (250-450)
[2021-01-19] MEDS: CHLORHEXIDINE GLUCONATE 4% CLEANSER FOR DECOLONIZATION TP SCH (23:22)
[2021-01-20] MEDS: MELATONIN 1 MG TABLET PO SCH ×2 (00:58→22:44)
[2021-01-20] MEDS: VANCOMYCIN 250 MG/5 ML ORAL SOLUTION PO SCH ×5 (01:14→23:45)
[2021-01-20] MEDS: VASOPRESSIN 40 UNITS in SODIUM CHLORIDE 98 ML IVPB SCH (03:14)
[2021-01-20] MEDS: HYDROCORTISONE SOD SUCCINATE 100 MG/2 ML VIAL IVPUSH SCH ×3 (03:14→17:32)
[2021-01-20] MEDS: HEPARIN NA (PORCINE) 5,000 UNITS/ML 1ML VIAL SQ SCH ×3 (05:24→22:43)
[2021-01-20] MEDS ORDERED: PANTOPRAZOLE SODIUM 80 MG in SODIUM CHLORIDE 100 ML IVPB SCH (05:30)
[2021-01-20 07:23] LABS: INR 1.05 (0.83-1.09); PROTHROMBIN TIME (PATIENT) 12.9 SEC (9.7-13.0)
[2021-01-20 07:25] LABS: HEMATOCRIT 31.1 % (32.4-45.2); HEMOGLOBIN 10.5 GM/dL (10.7-15.3); MCH 31.5 pg (25.7-33.7); MCHC 33.7 g/dl (32.0-36.0); MEAN CELL VOLUME 93.4 fl (80-96); MEAN PLT VOLUME 7.7 fl (7.5-11.1); PLATELET COUNT 300 K/MM3 (134-434); RBC 3.33 M/mm3 (3.60-5.2); RDW 16.3 % (11.6-15.6); WHITE BLOOD COUNT 16.2 K/mm3 (4.0-10.0)
[2021-01-20 07:26] LABS: ACTIVATED PTT 25.6 SECONDS (25.2-36.5)
[2021-01-20 07:30] LABS: CHLORIDE 110 mmol/L (98-107); SODIUM 138 mmol/L (136-145)
[2021-01-20 07:37] LABS: ALBUMIN 1.5 g/dl (3.4-5.0); BLOOD UREA NITROGEN 12.3 mg/dL (7-18); CO2 21 mmol/L (21-32); GLUCOSE,RANDOM 97 mg/dL (74-106); MAGNESIUM 1.5 mg/dL (1.8-2.4)
[2021-01-20 07:40] LABS: PHOSPHOROUS 1.2 mg/dL (2.5-4.9); SGOT/AST 27 U/L (15-37); SGPT/ALT 32 U/L (13-61)
[2021-01-20 07:41] LABS: BILIRUBIN,TOTAL 0.2 mg/dL (0.2-1)
[2021-01-20 07:42] LABS: TOT PROT 3.1 g/dl (6.4-8.2)
[2021-01-20 07:45] LABS: ALK PHOS 48 U/L (45-117)
[2021-01-20 07:55] LABS: ANION GAP 7 MMOL/L (8-16); CALCIUM 6.4 mg/dL (8.5-10.1)
[2021-01-20] MEDS ORDERED: MAGNESIUM SULF 50% (8.12 MEQ/2 ML-1 GM VIAL) IVPB ONE (08:03)
[2021-01-20 08:07] LABS: CREATININE < 0.2 mg/dL (0.55-1.3)
[2021-01-20] MEDS ORDERED: POTASSIUM PHOSPHATE 30 MM in SODIUM CHLORIDE 250 ML IVPB ONE (09:00)
[2021-01-20] MEDS: FLUDROCORTISONE ACETATE 0.1 MG TABLET (FP) PO SCH (09:09)
[2021-01-20] MEDS: ALPRAZolam 1 MG TABLET PO PRN ×2 (09:09→19:44)
[2021-01-20] MEDS: LACTOBACILLUS ACIDOPHILUS 1 TABLET PO SCH (09:13)
[2021-01-20] MEDS: MIDODRINE HCL 5 MG TABLET PO SCH ×3 (09:14→17:33)
[2021-01-20] MEDS: FAMOTIDINE 40 MG/5 ML ORAL SUSPENSION PO SCH (09:14)
[2021-01-20] MEDS: KCL 10 MEQ IVPB 10 MEQ/100 ML INFUS.BAG IVPB SCH ×3 (09:46→13:04)
[2021-01-20] MEDS: POLYETHYLENE GLYCOL 3350 119 GM BTL PO SCH ×2 (09:48→22:44)
[2021-01-20] MEDS: SODIUM CHLORIDE 1,000 ML IV SCH (12:56)
[2021-01-20] MEDS ORDERED: POTASSIUM CHLORIDE ORAL LIQUID 20 MEQ/15 ML PO ONE (17:11)
[2021-01-20] MEDS: NOREPINEPHRINE NS PREMIX 8,000 MCG/500 ML BAG IVPB SCH (17:40)
[2021-01-20] MEDS: SPIRONOLACTONE 25 MG TABLET PO SCH (22:43)
[2021-01-20] MEDS: CHLORHEXIDINE GLUCONATE 4% CLEANSER FOR DECOLONIZATION TP SCH (22:44)
[2021-01-20] MEDS: ONDANSETRON 4 MG/2 ML VIAL IVPUSH PRN (23:32)
[2021-01-21] MEDS: HYDROCORTISONE SOD SUCCINATE 100 MG/2 ML VIAL IVPUSH SCH ×3 (02:47→17:37)
[2021-01-21] MEDS: HEPARIN NA (PORCINE) 5,000 UNITS/ML 1ML VIAL SQ SCH ×3 (06:28→22:08)
[2021-01-21] MEDS: VANCOMYCIN 250 MG/5 ML ORAL SOLUTION PO SCH ×3 (06:29→17:37)
[2021-01-21 07:10] LABS: BASO % 0.2 % (0-2.0); EOS % 0.1 % (0-4.5); HEMATOCRIT 39.1 % (32.4-45.2); HEMOGLOBIN 12.9 GM/dL (10.7-15.3); LYMPH % 1.3 % (8-40); MCH 31.3 pg (25.7-33.7); MCHC 32.9 g/dl (32.0-36.0); MEAN CELL VOLUME 95.1 fl (80-96); NEUT % 96.4 % (42.8-82.8); PLATELET COUNT 254 K/MM3 (134-434); RBC 4.11 M/mm3 (3.60-5.2); RDW 17.5 % (11.6-15.6); WHITE BLOOD COUNT 20.4 K/mm3 (4.0-10.0)
[2021-01-21 07:18] LABS: ALBUMIN 1.7 g/dl (3.4-5.0); BLOOD UREA NITROGEN 11.3 mg/dL (7-18); MAGNESIUM 2.2 mg/dL (1.8-2.4)
[2021-01-21 07:21] LABS: CREATININE 0.2 mg/dL (0.55-1.3); PHOSPHOROUS 2.1 mg/dL (2.5-4.9)
[2021-01-21 07:23] LABS: BILIRUBIN,TOTAL 0.2 mg/dL (0.2-1); TOT PROT 3.8 g/dl (6.4-8.2)
[2021-01-21 07:32] LABS: CALCIUM 7.9 mg/dL (8.5-10.1)
[2021-01-21] MEDS ORDERED: SODIUM PHOSPHATE - 0 MM in DEXTROSE 5%-WATER - 250 ML IVPB ONE (08:36)
[2021-01-21] MEDS ORDERED: PT OWN MED DRAWER 7, Y5N ONE ×5 (09:19→12:33)
[2021-01-21] MEDS: SPIRONOLACTONE 25 MG TABLET PO SCH ×2 (09:26→22:08)
[2021-01-21] MEDS: LACTOBACILLUS ACIDOPHILUS 1 TABLET PO SCH (09:26)
[2021-01-21] MEDS: MIDODRINE HCL 5 MG TABLET PO SCH ×3 (09:26→17:36)
[2021-01-21] MEDS: FLUDROCORTISONE ACETATE 0.1 MG TABLET (FP) PO SCH (09:26)
[2021-01-21] MEDS: ALPRAZolam 1 MG TABLET PO PRN ×2 (09:26→17:33)
[2021-01-21] MEDS: POLYETHYLENE GLYCOL 3350 119 GM BTL PO SCH ×2 (09:27→22:09)
[2021-01-21] MEDS: FAMOTIDINE 40 MG/5 ML ORAL SUSPENSION PO SCH (09:27)
[2021-01-21] MEDS ORDERED: SODIUM PHOSPHATE - 30 MM in DEXTROSE 5%-WATER - 250 ML IVPB ONE (10:00)
[2021-01-21 10:38] LABS: ANISOCYTOSIS 1+; MACROCYTOSIS 0; PLATELET ESTIMATE NORMAL
[2021-01-21] MEDS: SODIUM CHLORIDE 1,000 ML IV SCH (11:00)
[2021-01-21] MEDS ORDERED: FUROSEMIDE 40 MG/4 ML INJECTABLE VIAL IVPUSH ONE (11:30)
[2021-01-21] MEDS: NOREPINEPHRINE NS PREMIX 8,000 MCG/500 ML BAG IVPB SCH (17:36)
[2021-01-21] MEDS: MELATONIN 1 MG TABLET PO SCH (22:09)
[2021-01-21] MEDS: CHLORHEXIDINE GLUCONATE 4% CLEANSER FOR DECOLONIZATION TP SCH (22:09)
[2021-01-22] MEDS: HYDROCORTISONE SOD SUCCINATE 100 MG/2 ML VIAL IVPUSH SCH ×2 (03:31→09:41)
[2021-01-22] MEDS: HEPARIN NA (PORCINE) 5,000 UNITS/ML 1ML VIAL SQ SCH ×3 (06:22→22:25)
[2021-01-22] MEDS: VANCOMYCIN 250 MG/5 ML ORAL SOLUTION PO SCH ×4 (06:22→18:48)
[2021-01-22 07:13] LABS: MAGNESIUM 2.1 mg/dL (1.8-2.4)
[2021-01-22 07:17] LABS: PHOSPHOROUS 2.3 mg/dL (2.5-4.9)
[2021-01-22] MEDS ORDERED: NAPH,MB-DB/K PH,MBDB POWDER PACKET PO ONE (09:00)
[2021-01-22 09:01] LABS: EOS % 0.1 % (0-4.5); HEMATOCRIT 37.3 % (32.4-45.2); HEMOGLOBIN 12.4 GM/dL (10.7-15.3); LYMPH % 2.1 % (8-40); MCH 31.7 pg (25.7-33.7); MCHC 33.2 g/dl (32.0-36.0); MEAN CELL VOLUME 95.7 fl (80-96); MEAN PLT VOLUME 8.1 fl (7.5-11.1); MONO % 3.7 % (3.8-10.2); NEUT % 94.1 % (42.8-82.8); PLATELET COUNT 255 K/MM3 (134-434); RBC 3.89 M/mm3 (3.60-5.2); WHITE BLOOD COUNT 13.8 K/mm3 (4.0-10.0)
[2021-01-22 09:10] LABS: CALCIUM 7.9 mg/dL (8.5-10.1)
[2021-01-22 09:11] LABS: ALBUMIN 1.8 g/dl (3.4-5.0); BLOOD UREA NITROGEN 11.7 mg/dL (7-18)
[2021-01-22 09:14] LABS: CREATININE 0.3 mg/dL (0.55-1.3)
[2021-01-22 09:15] LABS: BILIRUBIN,TOTAL 0.2 mg/dL (0.2-1)
[2021-01-22] MEDS ORDERED: PT OWN MED DRAWER 7, Y5N ONE ×2 (09:18→10:46)
[2021-01-22] MEDS: FLUDROCORTISONE ACETATE 0.1 MG TABLET (FP) PO SCH (09:43)
[2021-01-22] MEDS: MIDODRINE HCL 5 MG TABLET PO SCH ×3 (09:44→18:47)
[2021-01-22] MEDS: SPIRONOLACTONE 25 MG TABLET PO SCH ×2 (09:44→22:26)
[2021-01-22] MEDS: LACTOBACILLUS ACIDOPHILUS 1 TABLET PO SCH (09:44)
[2021-01-22] MEDS: ALPRAZolam 1 MG TABLET PO PRN ×2 (09:44→18:47)
[2021-01-22] MEDS: POLYETHYLENE GLYCOL 3350 119 GM BTL PO SCH ×2 (09:45→22:25)
[2021-01-22] MEDS: FAMOTIDINE 40 MG/5 ML ORAL SUSPENSION PO SCH (09:45)
[2021-01-22] MEDS ORDERED: FUROSEMIDE 40 MG/4 ML INJECTABLE VIAL IVPUSH ONE (09:52)
[2021-01-22] MEDS ORDERED: POTASSIUM PHOSPHATE 20 MM in SODIUM CHLORIDE 250 ML IVPB ONE (10:00)
[2021-01-22] MEDS ORDERED: MIRTAZAPINE 15 MG TABLET (FP) PO SCH ×2 (10:00)
[2021-01-22 12:43] LABS: ANISOCYTOSIS 1+; MACROCYTOSIS 0; PLATELET ESTIMATE NORMAL; TOXIC GRANULATION 1+
[2021-01-22] MEDS: MELATONIN 1 MG TABLET PO SCH (22:24)
[2021-01-22] MEDS: CHLORHEXIDINE GLUCONATE 4% CLEANSER FOR DECOLONIZATION TP SCH (22:25)
[2021-01-22] MEDS: NOREPINEPHRINE NS PREMIX 8,000 MCG/500 ML BAG IVPB SCH (22:26)
[2021-01-23] MEDS: VANCOMYCIN 250 MG/5 ML ORAL SOLUTION PO SCH ×4 (00:56→17:30)
[2021-01-23] MEDS: HEPARIN NA (PORCINE) 5,000 UNITS/ML 1ML VIAL SQ SCH ×3 (06:35→21:24)
[2021-01-23 07:00] LABS: BASO % 0.2 % (0-2.0); EOS % 0.3 % (0-4.5); HEMATOCRIT 34.8 % (32.4-45.2); HEMOGLOBIN 11.6 GM/dL (10.7-15.3); LYMPH % 4.8 % (8-40); MCH 31.8 pg (25.7-33.7); MCHC 33.2 g/dl (32.0-36.0); MEAN CELL VOLUME 95.6 fl (80-96); MEAN PLT VOLUME 8.1 fl (7.5-11.1); MONO % 4.4 % (3.8-10.2); NEUT % 90.3 % (42.8-82.8); PLATELET COUNT 217 K/MM3 (134-434); RBC 3.64 M/mm3 (3.60-5.2); WHITE BLOOD COUNT 15.9 K/mm3 (4.0-10.0)
[2021-01-23 07:33] LABS: ALBUMIN 1.7 g/dl (3.4-5.0); BLOOD UREA NITROGEN 13.1 mg/dL (7-18); CALCIUM 7.4 mg/dL (8.5-10.1)
[2021-01-23 07:34] LABS: MAGNESIUM 1.9 mg/dL (1.8-2.4)
[2021-01-23 07:37] LABS: BILIRUBIN,TOTAL 0.2 mg/dL (0.2-1); CREATININE 0.4 mg/dL (0.55-1.3); PHOSPHOROUS 2.6 mg/dL (2.5-4.9); TOT PROT 3.6 g/dl (6.4-8.2)
[2021-01-23] MEDS ORDERED: POTASSIUM CHLORIDE TABS 20 MEQ TABLET.ER (FP) PO ONE (07:41)
[2021-01-23] MEDS: POLYETHYLENE GLYCOL 3350 119 GM BTL PO SCH (09:06)
[2021-01-23] MEDS: SPIRONOLACTONE 25 MG TABLET PO SCH ×2 (09:07→21:24)
[2021-01-23] MEDS: FLUDROCORTISONE ACETATE 0.1 MG TABLET (FP) PO SCH (09:08)
[2021-01-23] MEDS: MIDODRINE HCL 5 MG TABLET PO SCH ×3 (09:08→17:30)
[2021-01-23] MEDS: LACTOBACILLUS ACIDOPHILUS 1 TABLET PO SCH (09:09)
[2021-01-23] MEDS: ALPRAZolam 1 MG TABLET PO PRN ×2 (09:27→21:24)
[2021-01-23] MEDS: FAMOTIDINE 40 MG/5 ML ORAL SUSPENSION PO SCH (10:44)
[2021-01-23 14:39] LABS: CALCIUM 7.5 mg/dL (8.5-10.1)
[2021-01-23 14:40] LABS: ALBUMIN 1.7 g/dl (3.4-5.0); BLOOD UREA NITROGEN 12.6 mg/dL (7-18)
[2021-01-23 14:43] LABS: CREATININE 0.3 mg/dL (0.55-1.3)
[2021-01-23 14:44] LABS: BILIRUBIN,TOTAL 0.3 mg/dL (0.2-1); TOT PROT 3.6 g/dl (6.4-8.2)
[2021-01-23] MEDS: KCL 10 MEQ IVPB 10 MEQ/100 ML INFUS.BAG IVPB SCH ×3 (16:23→19:46)
[2021-01-23] MEDS: NOREPINEPHRINE NS PREMIX 8,000 MCG/500 ML BAG IVPB SCH (17:31)
[2021-01-23] MEDS: MELATONIN 1 MG TABLET PO SCH (21:24)
[2021-01-23] MEDS ORDERED: MIRTAZAPINE 15 MG TABLET (FP) PO SCH (22:00)
[2021-01-23] MEDS: CHLORHEXIDINE GLUCONATE 4% CLEANSER FOR DECOLONIZATION TP SCH (22:57)
[2021-01-24] MEDS: VANCOMYCIN 250 MG/5 ML ORAL SOLUTION PO SCH ×5 (00:07→23:06)
[2021-01-24] MEDS: HEPARIN NA (PORCINE) 5,000 UNITS/ML 1ML VIAL SQ SCH ×3 (06:05→22:15)
[2021-01-24 06:30] LABS: BASO % 0.1 % (0-2.0); EOS % 0.5 % (0-4.5); HEMATOCRIT 35.2 % (32.4-45.2); HEMOGLOBIN 11.9 GM/dL (10.7-15.3); LYMPH % 5.1 % (8-40); MCH 32.4 pg (25.7-33.7); MCHC 33.8 g/dl (32.0-36.0); MEAN CELL VOLUME 95.8 fl (80-96); MEAN PLT VOLUME 8.2 fl (7.5-11.1); NEUT % 88.3 % (42.8-82.8); PLATELET COUNT 183 K/MM3 (134-434); RBC 3.68 M/mm3 (3.60-5.2); RDW 18.8 % (11.6-15.6); WHITE BLOOD COUNT 7.8 K/mm3 (4.0-10.0)
[2021-01-24 06:51] LABS: CALCIUM 7.1 mg/dL (8.5-10.1)
[2021-01-24 06:52] LABS: ALBUMIN 1.6 g/dl (3.4-5.0); BLOOD UREA NITROGEN 11.4 mg/dL (7-18); MAGNESIUM 1.8 mg/dL (1.8-2.4)
[2021-01-24 06:55] LABS: CREATININE 0.3 mg/dL (0.55-1.3); PHOSPHOROUS 2.1 mg/dL (2.5-4.9)
[2021-01-24 06:56] LABS: BILIRUBIN,TOTAL 0.4 mg/dL (0.2-1)
[2021-01-24 06:57] LABS: TOT PROT 3.4 g/dl (6.4-8.2)
[2021-01-24] MEDS ORDERED: PT OWN MED DRAWER 7, Y5N ONE ×3 (08:08→22:01)
[2021-01-24] MEDS: FAMOTIDINE 40 MG/5 ML ORAL SUSPENSION PO SCH (09:03)
[2021-01-24] MEDS: AMINO ACIDS/PROTEIN HYDROLYS 30 ML LIQUID.PKT PO SCH ×2 (09:03→17:38)
[2021-01-24] MEDS: MIDODRINE HCL 5 MG TABLET PO SCH ×3 (09:03→17:40)
[2021-01-24] MEDS: SPIRONOLACTONE 25 MG TABLET PO SCH ×3 (09:04→22:49)
[2021-01-24] MEDS: FLUDROCORTISONE ACETATE 0.1 MG TABLET (FP) PO SCH (09:04)
[2021-01-24] MEDS: LACTOBACILLUS ACIDOPHILUS 1 TABLET PO SCH (09:04)
[2021-01-24] MEDS ORDERED: POTASSIUM PHOSPHATE 30 MM in DEXTROSE 5%-WATER - 250 ML IVPB ONE (11:00)
[2021-01-24] MEDS: NOREPINEPHRINE NS PREMIX 8,000 MCG/500 ML BAG IVPB SCH (17:39)
[2021-01-24] MEDS: MELATONIN 1 MG TABLET PO SCH ×2 (22:15→22:50)
[2021-01-24] MEDS: CHLORHEXIDINE GLUCONATE 4% CLEANSER FOR DECOLONIZATION TP SCH (22:15)
[2021-01-24] MEDS: ALPRAZolam 1 MG TABLET PO PRN (22:49)
[2021-01-24] MEDS: ONDANSETRON 4 MG/2 ML VIAL IVPUSH PRN (22:50)
[2021-01-25] MEDS ORDERED: PT OWN MED DRAWER 7, Y5N ONE ×2 (05:14→07:24)
[2021-01-25] MEDS: VANCOMYCIN 250 MG/5 ML ORAL SOLUTION PO SCH ×3 (05:30→17:50)
[2021-01-25] MEDS: HEPARIN NA (PORCINE) 5,000 UNITS/ML 1ML VIAL SQ SCH ×3 (05:30→23:04)
[2021-01-25] MEDS: SPIRONOLACTONE 25 MG TABLET PO SCH ×3 (05:30→22:10)
[2021-01-25] MEDS: BANATROL PLUS POWDER PACKET PO SCH ×3 (05:30→23:04)
[2021-01-25 06:53] LABS: BASO % 0.2 % (0-2.0); EOS % 0.1 % (0-4.5); HEMATOCRIT 38.8 % (32.4-45.2); LYMPH % 9.2 % (8-40); MCH 32.3 pg (25.7-33.7); MCHC 33.4 g/dl (32.0-36.0); MEAN CELL VOLUME 96.6 fl (80-96); MEAN PLT VOLUME 8.9 fl (7.5-11.1); MONO % 8.7 % (3.8-10.2); NEUT % 81.8 % (42.8-82.8); PLATELET COUNT 150 K/MM3 (134-434); RBC 4.02 M/mm3 (3.60-5.2); RDW 19.2 % (11.6-15.6); WHITE BLOOD COUNT 2.8 K/mm3 (4.0-10.0)
[2021-01-25] MEDS ORDERED: ACETAMINOPHEN 1000 MG/100 ML VIAL (NON FORMULARY) IVPB ONE (07:03)
[2021-01-25 07:12] LABS: ALBUMIN 1.6 g/dl (3.4-5.0); BLOOD UREA NITROGEN 16.3 mg/dL (7-18); CALCIUM 7.6 mg/dL (8.5-10.1); MAGNESIUM 1.8 mg/dL (1.8-2.4)
[2021-01-25 07:15] LABS: CREATININE 0.7 mg/dL (0.55-1.3)
[2021-01-25 07:16] LABS: PHOSPHOROUS 3.9 mg/dL (2.5-4.9)
[2021-01-25 07:17] LABS: BILIRUBIN,TOTAL 0.4 mg/dL (0.2-1); TOT PROT 3.6 g/dl (6.4-8.2)
[2021-01-25] MEDS: ONDANSETRON 4 MG/2 ML VIAL IVPUSH PRN ×2 (07:28→15:00)
[2021-01-25] MEDS: AMINO ACIDS/PROTEIN HYDROLYS 30 ML LIQUID.PKT PO SCH ×2 (07:32→17:03)
[2021-01-25] MEDS ORDERED: LORazepam 2 MG/ML SDV VIAL IVPUSH ONE (07:40)
[2021-01-25] MEDS ORDERED: LORazepam 2 MG/ML SDV VIAL ONE (07:42)
[2021-01-25] MEDS: FLUDROCORTISONE ACETATE 0.1 MG TABLET (FP) PO SCH (09:31)
[2021-01-25] MEDS: LACTOBACILLUS ACIDOPHILUS 1 TABLET PO SCH (09:31)
[2021-01-25] MEDS: FAMOTIDINE 40 MG/5 ML ORAL SUSPENSION PO SCH (09:31)
[2021-01-25] MEDS: MIDODRINE HCL 5 MG TABLET PO SCH ×3 (09:31→17:43)
[2021-01-25] MEDS: ASCORBIC ACID 500 MG TABLET (FP) PO SCH (09:32)
[2021-01-25] MEDS: MULTIVITAMINS (DAILY MVI) TABLET (FP) PO SCH (09:32)
[2021-01-25] MEDS ORDERED: DEXTROSE 5%-WATER - 50 ML IVPB ONE ×3 (10:18→20:55)
[2021-01-25] MEDS ORDERED: PIPERACILLIN/TAZOBACTAM 3.375 GM VIAL IVPB ONE ×3 (10:18→20:55)
[2021-01-25] MEDS: PIPERACILLIN/TAZOB 3.375 GM 3.375 GM in DEXTROSE 5%-WATER - 50 ML IVPB SCH ×3 (10:19→22:09)
[2021-01-25 10:31] LABS: EPI CELLS 9 /uL (0-25.1); HYALINE CASTS 13 /uL (0-3.1); URINE APPEARANCE TURBID; URINE BACTERIA 8 /uL (0-1359); URINE BILIRUBIN NEGATIVE (NEGATIVE); URINE COLOR RED; URINE GLUCOSE (UA) TRACE (NEGATIVE); URINE KETONE NEGATIVE (NEGATIVE); URINE LEUK ESTERASE 2+ (NEGATIVE); URINE NITRITE NEGATIVE (NEGATIVE); URINE PROTEIN 3+ (NEGATIVE); URINE UROBILINOGEN 0.2 mg/dL (0.2-1.0); URINE WBC 6208 /uL (0-25.8)
[2021-01-25 10:33] LABS: URINE RBC 18491 /uL (0-23.9)
[2021-01-25 10:47] LABS: YEAST NON SEEN (NEGATIVE)
[2021-01-25] MEDS ORDERED: COSYNTROPIN 0.25 MG VIAL IVPUSH ONE (21:30)
[2021-01-25] MEDS: MELATONIN 1 MG TABLET PO SCH (23:04)
[2021-01-25] MEDS: DEXAMETHASONE SOD PHOSPHATE 4 MG/1 ML VIAL IVPUSH SCH (23:04)
[2021-01-25] MEDS: CHLORHEXIDINE GLUCONATE 4% CLEANSER FOR DECOLONIZATION TP SCH (23:04)
[2021-01-26] MEDS: VANCOMYCIN 250 MG/5 ML ORAL SOLUTION PO SCH ×5 (01:15→23:26)
[2021-01-26] MEDS: PIPERACILLIN/TAZOB 3.375 GM 3.375 GM in DEXTROSE 5%-WATER - 50 ML IVPB SCH ×3 (03:50→17:58)
[2021-01-26] MEDS ORDERED: PT OWN MED DRAWER 7, Y5N ONE ×2 (05:06→09:26)
[2021-01-26] MEDS ORDERED: DEXTROSE 5%-WATER - 50 ML IVPB ONE ×3 (05:07→17:18)
[2021-01-26] MEDS ORDERED: PIPERACILLIN/TAZOBACTAM 3.375 GM VIAL IVPB ONE ×3 (05:07→17:17)
[2021-01-26] MEDS: BANATROL PLUS POWDER PACKET PO SCH ×3 (05:25→22:18)
[2021-01-26] MEDS: HEPARIN NA (PORCINE) 5,000 UNITS/ML 1ML VIAL SQ SCH ×3 (05:26→22:18)
[2021-01-26] MEDS: DEXAMETHASONE SOD PHOSPHATE 4 MG/1 ML VIAL IVPUSH SCH ×2 (05:26→14:51)
[2021-01-26 07:31] LABS: HEMATOCRIT 31.3 % (32.4-45.2); HEMOGLOBIN 10.7 GM/dL (10.7-15.3); LYMPH % 6.7 % (8-40); MCH 33.1 pg (25.7-33.7); MCHC 34.2 g/dl (32.0-36.0); MEAN CELL VOLUME 96.8 fl (80-96); MEAN PLT VOLUME 8.9 fl (7.5-11.1); MONO % 8.4 % (3.8-10.2); NEUT % 84.9 % (42.8-82.8); PLATELET COUNT 139 K/MM3 (134-434); RBC 3.23 M/mm3 (3.60-5.2); RDW 19.2 % (11.6-15.6); WHITE BLOOD COUNT 3.2 K/mm3 (4.0-10.0)
[2021-01-26 07:53] LABS: CALCIUM 7.8 mg/dL (8.5-10.1)
[2021-01-26 07:54] LABS: ALBUMIN 1.6 g/dl (3.4-5.0); MAGNESIUM 1.8 mg/dL (1.8-2.4)
[2021-01-26 07:57] LABS: CREATININE 0.5 mg/dL (0.55-1.3); PHOSPHOROUS 2.6 mg/dL (2.5-4.9)
[2021-01-26 07:58] LABS: BILIRUBIN,TOTAL 0.3 mg/dL (0.2-1); TOT PROT 3.5 g/dl (6.4-8.2)
[2021-01-26] MEDS: AMINO ACIDS/PROTEIN HYDROLYS 30 ML LIQUID.PKT PO SCH ×2 (08:37→17:58)
[2021-01-26] MEDS: MULTIVITAMINS (DAILY MVI) TABLET (FP) PO SCH (09:21)
[2021-01-26] MEDS: FLUDROCORTISONE ACETATE 0.1 MG TABLET (FP) PO SCH (09:21)
[2021-01-26] MEDS: LACTOBACILLUS ACIDOPHILUS 1 TABLET PO SCH (09:21)
[2021-01-26] MEDS: ASCORBIC ACID 500 MG TABLET (FP) PO SCH (09:22)
[2021-01-26] MEDS: MIDODRINE HCL 5 MG TABLET PO SCH ×3 (09:22→17:58)
[2021-01-26] MEDS: POTASSIUM CHLORIDE TABS 20 MEQ TABLET.ER (FP) PO SCH ×2 (09:31→22:19)
[2021-01-26] MEDS: FAMOTIDINE 40 MG/5 ML ORAL SUSPENSION PO SCH (09:31)
[2021-01-26] MEDS ORDERED: LORazepam 2 MG/ML SDV VIAL IVPUSH ONE (10:30)
[2021-01-26] MEDS: SPIRONOLACTONE 25 MG TABLET PO SCH ×3 (14:51→22:17)
[2021-01-26] MEDS ORDERED: PIPERACILLIN/TAZOB 3.375 GM 3.375 GM in DEXTROSE 5%-WATER - 50 ML IVPB SCH (18:00)
[2021-01-26] MEDS: CHLORHEXIDINE GLUCONATE 4% CLEANSER FOR DECOLONIZATION TP SCH (22:19)
[2021-01-27] MEDS: MELATONIN 1 MG TABLET PO SCH (01:20)
[2021-01-27] MEDS: LORazepam 2 MG/ML SDV VIAL IVPUSH PRN ×2 (01:20→10:04)
[2021-01-27] MEDS ORDERED: PIPERACILLIN/TAZOBACTAM 3.375 GM VIAL IVPB ONE ×2 (02:04→10:06)
[2021-01-27] MEDS ORDERED: DEXTROSE 5%-WATER - 50 ML IVPB ONE ×2 (02:04→10:06)
[2021-01-27] MEDS: PIPERACILLIN/TAZOB 3.375 GM 3.375 GM in DEXTROSE 5%-WATER - 50 ML IVPB SCH ×2 (02:26→10:07)
[2021-01-27] MEDS: DEXAMETHASONE SOD PHOSPHATE 4 MG/1 ML VIAL IVPUSH SCH ×4 (02:27→20:26)
[2021-01-27] MEDS: BANATROL PLUS POWDER PACKET PO SCH ×2 (06:38→13:25)
[2021-01-27] MEDS: HEPARIN NA (PORCINE) 5,000 UNITS/ML 1ML VIAL SQ SCH ×3 (06:38→22:27)
[2021-01-27] MEDS: VANCOMYCIN 250 MG/5 ML ORAL SOLUTION PO SCH ×3 (06:38→17:32)
[2021-01-27] MEDS ORDERED: POTASSIUM CHLORIDE 20 MEQ PREMIX IVPB 100 ML IVPB ONE (08:43)
[2021-01-27] MEDS ORDERED: PT OWN MED DRAWER 7, Y5N ONE ×2 (09:51→15:16)
[2021-01-27] MEDS: MULTIVITAMINS (DAILY MVI) TABLET (FP) PO SCH (09:55)
[2021-01-27] MEDS: LACTOBACILLUS ACIDOPHILUS 1 TABLET PO SCH (09:56)
[2021-01-27] MEDS: SPIRONOLACTONE 25 MG TABLET PO SCH ×4 (09:56→22:27)
[2021-01-27] MEDS: ASCORBIC ACID 500 MG TABLET (FP) PO SCH (09:56)
[2021-01-27] MEDS: MIDODRINE HCL 5 MG TABLET PO SCH ×3 (09:56→17:32)
[2021-01-27] MEDS: FLUDROCORTISONE ACETATE 0.1 MG TABLET (FP) PO SCH (09:56)
[2021-01-27] MEDS: AMINO ACIDS/PROTEIN HYDROLYS 30 ML LIQUID.PKT PO SCH ×2 (09:57→17:31)
[2021-01-27] MEDS: FAMOTIDINE 40 MG/5 ML ORAL SUSPENSION PO SCH (09:58)
[2021-01-27] MEDS: POTASSIUM CHLORIDE TABS 20 MEQ TABLET.ER (FP) PO SCH (10:04)
[2021-01-27 10:08] LABS: HEMATOCRIT 34.2 % (32.4-45.2); HEMOGLOBIN 11.4 GM/dL (10.7-15.3); MCH 32.3 pg (25.7-33.7); MCHC 33.3 g/dl (32.0-36.0); MEAN PLT VOLUME 8.5 fl (7.5-11.1); PLATELET COUNT 155 K/MM3 (134-434); RBC 3.52 M/mm3 (3.60-5.2); RDW 19.5 % (11.6-15.6); WHITE BLOOD COUNT 5.6 K/mm3 (4.0-10.0)
[2021-01-27 10:35] LABS: CALCIUM 8.1 mg/dL (8.5-10.1)
[2021-01-27 10:36] LABS: ALBUMIN 1.8 g/dl (3.4-5.0); BLOOD UREA NITROGEN 14.4 mg/dL (7-18); MAGNESIUM 1.9 mg/dL (1.8-2.4)
[2021-01-27 10:38] LABS: PHOSPHOROUS 1.6 mg/dL (2.5-4.9)
[2021-01-27 10:39] LABS: CREATININE 0.3 mg/dL (0.55-1.3)
[2021-01-27 10:40] LABS: BILIRUBIN,TOTAL 0.4 mg/dL (0.2-1)
[2021-01-27 11:18] LABS: ANISOCYTOSIS 0; MACROCYTOSIS 0; PLATELET ESTIMATE DECREASED
[2021-01-27] MEDS ORDERED: POTASSIUM PHOSPHATE 15 MM in DEXTROSE 5%-WATER - 100 ML IVPB ONE (13:50)
[2021-01-27] MEDS ORDERED: FUROSEMIDE 40 MG/4 ML INJECTABLE VIAL IVPUSH ONE (18:00)
[2021-01-27] MEDS: ACETAMINOPHEN 325 MG TABLET (FP) PO PRN (18:07)
[2021-01-27] MEDS: CHLORHEXIDINE GLUCONATE 4% CLEANSER FOR DECOLONIZATION TP SCH (22:28)
[2021-01-28] MEDS: VANCOMYCIN 250 MG/5 ML ORAL SOLUTION PO SCH ×4 (00:16→17:14)
[2021-01-28] MEDS: DEXAMETHASONE SOD PHOSPHATE 4 MG/1 ML VIAL IVPUSH SCH ×4 (03:04→22:40)
[2021-01-28] MEDS: BANATROL PLUS POWDER PACKET PO SCH ×4 (06:27→22:39)
[2021-01-28] MEDS: MELATONIN 1 MG TABLET PO SCH ×2 (06:28→22:39)
[2021-01-28] MEDS: HEPARIN NA (PORCINE) 5,000 UNITS/ML 1ML VIAL SQ SCH ×3 (06:29→22:39)
[2021-01-28 07:27] LABS: ALBUMIN 1.6 g/dl (3.4-5.0); CALCIUM 7.8 mg/dL (8.5-10.1)
[2021-01-28 07:28] LABS: BLOOD UREA NITROGEN 16.9 mg/dL (7-18); MAGNESIUM 1.9 mg/dL (1.8-2.4)
[2021-01-28 07:31] LABS: BASO % 0.1 % (0-2.0); HEMATOCRIT 30.8 % (32.4-45.2); HEMOGLOBIN 10.7 GM/dL (10.7-15.3); LYMPH % 1.7 % (8-40); MCH 33.2 pg (25.7-33.7); MCHC 34.8 g/dl (32.0-36.0); MEAN CELL VOLUME 95.5 fl (80-96); MEAN PLT VOLUME 8.7 fl (7.5-11.1); MONO % 5.7 % (3.8-10.2); NEUT % 92.5 % (42.8-82.8); PLATELET COUNT 145 K/MM3 (134-434); RBC 3.23 M/mm3 (3.60-5.2); RDW 19.4 % (11.6-15.6); WHITE BLOOD COUNT 9.6 K/mm3 (4.0-10.0)
[2021-01-28 07:32] LABS: BILIRUBIN,TOTAL 0.3 mg/dL (0.2-1); TOT PROT 3.7 g/dl (6.4-8.2)
[2021-01-28 07:34] LABS: CREATININE 0.3 mg/dL (0.55-1.3)
[2021-01-28] MEDS: AMINO ACIDS/PROTEIN HYDROLYS 30 ML LIQUID.PKT PO SCH ×2 (08:43→17:13)
[2021-01-28] MEDS: SPIRONOLACTONE 25 MG TABLET PO SCH ×3 (09:32→22:39)
[2021-01-28] MEDS: LACTOBACILLUS ACIDOPHILUS 1 TABLET PO SCH (09:32)
[2021-01-28] MEDS: FAMOTIDINE 40 MG/5 ML ORAL SUSPENSION PO SCH (09:33)
[2021-01-28] MEDS: FLUDROCORTISONE ACETATE 0.1 MG TABLET (FP) PO SCH (09:33)
[2021-01-28] MEDS: MIDODRINE HCL 5 MG TABLET PO SCH ×3 (09:34→17:13)
[2021-01-28] MEDS: MULTIVITAMINS (DAILY MVI) TABLET (FP) PO SCH (09:34)
[2021-01-28] MEDS: ASCORBIC ACID 500 MG TABLET (FP) PO SCH (09:34)
[2021-01-28 10:21] LABS: ANISOCYTOSIS 1+; MACROCYTOSIS 0; PLATELET ESTIMATE NORMAL
[2021-01-28] MEDS ORDERED: PT OWN MED DRAWER 7, Y5N ONE (12:07)
[2021-01-28] MEDS: BACITRACIN 15 GM TUBE TOPICAL OINTMENT TP SCH (14:22)
[2021-01-28] MEDS ORDERED: FUROSEMIDE 40 MG/4 ML INJECTABLE VIAL ONE (14:31)
[2021-01-28] MEDS: LORazepam 1 MG TABLET PO SCH ×2 (14:32→22:39)
[2021-01-28] MEDS ORDERED: FUROSEMIDE 40 MG/4 ML INJECTABLE VIAL IVPUSH ONE (14:34)
[2021-01-28 15:47] VITALS: BMI 28.0
[2021-01-28] MEDS: CHLORHEXIDINE GLUCONATE 4% CLEANSER FOR DECOLONIZATION TP SCH (22:39)
[2021-01-29] MEDS: VANCOMYCIN 250 MG/5 ML ORAL SOLUTION PO SCH ×4 (00:30→18:07)
[2021-01-29] MEDS: DEXAMETHASONE SOD PHOSPHATE 4 MG/1 ML VIAL IVPUSH SCH ×4 (04:30→21:32)
[2021-01-29] MEDS: HEPARIN NA (PORCINE) 5,000 UNITS/ML 1ML VIAL SQ SCH ×3 (05:26→21:33)
[2021-01-29] MEDS: BANATROL PLUS POWDER PACKET PO SCH ×3 (05:26→21:33)
[2021-01-29] MEDS: FUROSEMIDE 40 MG/4 ML INJECTABLE VIAL IVPUSH SCH ×2 (05:27→15:20)
[2021-01-29 06:38] LABS: BASO % 0.2 % (0-2.0); HEMATOCRIT 29.1 % (32.4-45.2); HEMOGLOBIN 9.8 GM/dL (10.7-15.3); LYMPH % 2.1 % (8-40); MCH 32.7 pg (25.7-33.7); MCHC 33.8 g/dl (32.0-36.0); MEAN CELL VOLUME 96.8 fl (80-96); MEAN PLT VOLUME 8.7 fl (7.5-11.1); MONO % 7.2 % (3.8-10.2); NEUT % 90.5 % (42.8-82.8); PLATELET COUNT 130 K/MM3 (134-434); RBC 3.01 M/mm3 (3.60-5.2); RDW 19.3 % (11.6-15.6)
[2021-01-29 06:58] LABS: BLOOD UREA NITROGEN 17.2 mg/dL (7-18); CALCIUM 7.7 mg/dL (8.5-10.1); MAGNESIUM 1.8 mg/dL (1.8-2.4)
[2021-01-29 07:01] LABS: ALBUMIN 1.6 g/dl (3.4-5.0); CREATININE 0.2 mg/dL (0.55-1.3); PHOSPHOROUS 1.6 mg/dL (2.5-4.9)
[2021-01-29 07:02] LABS: BILIRUBIN,TOTAL 0.4 mg/dL (0.2-1)
[2021-01-29 07:06] LABS: TOT PROT 3.6 g/dl (6.4-8.2)
[2021-01-29] MEDS ORDERED: NAPH,MB-DB/K PH,MBDB POWDER PACKET PO ONE (09:00)
[2021-01-29] MEDS ORDERED: POTASSIUM CHLORIDE ORAL LIQUID 20 MEQ/15 ML PO ONE (09:00)
[2021-01-29] MEDS: SPIRONOLACTONE 25 MG TABLET PO SCH ×2 (10:50→21:33)
[2021-01-29] MEDS: LORazepam 1 MG TABLET PO SCH ×2 (10:50→16:11)
[2021-01-29] MEDS: LACTOBACILLUS ACIDOPHILUS 1 TABLET PO SCH (10:51)
[2021-01-29] MEDS: MIDODRINE HCL 5 MG TABLET PO SCH ×3 (10:51→18:08)
[2021-01-29] MEDS: ASCORBIC ACID 500 MG TABLET (FP) PO SCH (10:51)
[2021-01-29] MEDS: AMINO ACIDS/PROTEIN HYDROLYS 30 ML LIQUID.PKT PO SCH (10:52)
[2021-01-29] MEDS: MULTIVITAMINS (DAILY MVI) TABLET (FP) PO SCH (10:52)
[2021-01-29] MEDS ORDERED: PT OWN MED DRAWER 7, Y5N ONE (11:03)
[2021-01-29] MEDS: FAMOTIDINE 40 MG/5 ML ORAL SUSPENSION PO SCH (11:11)
[2021-01-29] MEDS ORDERED: BACITRACIN 15 GM TUBE TOPICAL OINTMENT TP SCH (11:18)
[2021-01-29] MEDS ORDERED: BENZOCAINE/MENTH/CETYLPYRD CL 1 EACH LOZENGE MM PRN (17:42)
[2021-01-29] MEDS ORDERED: ONDANSETRON 4 MG/2 ML VIAL IVPUSH PRN (17:42)
[2021-01-29] MEDS: LORazepam 0.5 MG TABLET PO SCH (21:33)
[2021-01-29] MEDS ORDERED: MELATONIN 1 MG TABLET PO SCH (22:00)
[2021-01-30] MEDS: VANCOMYCIN 250 MG/5 ML ORAL SOLUTION PO SCH ×4 (00:05→17:08)
[2021-01-30] MEDS: DEXAMETHASONE SOD PHOSPHATE 4 MG/1 ML VIAL IVPUSH SCH ×3 (02:07→14:45)
[2021-01-30] MEDS: HEPARIN NA (PORCINE) 5,000 UNITS/ML 1ML VIAL SQ SCH ×3 (05:24→22:03)
[2021-01-30] MEDS: BANATROL PLUS POWDER PACKET PO SCH ×3 (05:24→21:17)
[2021-01-30 08:24] LABS: BASO % 0.1 % (0-2.0); HEMATOCRIT 31.8 % (32.4-45.2); HEMOGLOBIN 10.7 GM/dL (10.7-15.3); LYMPH % 2.5 % (8-40); MCH 32.5 pg (25.7-33.7); MCHC 33.5 g/dl (32.0-36.0); MEAN CELL VOLUME 96.8 fl (80-96); MEAN PLT VOLUME 8.6 fl (7.5-11.1); NEUT % 89.4 % (42.8-82.8); PLATELET COUNT 138 K/MM3 (134-434); RBC 3.29 M/mm3 (3.60-5.2); RDW 19.6 % (11.6-15.6); WHITE BLOOD COUNT 7.7 K/mm3 (4.0-10.0)
[2021-01-30 08:36] LABS: ALBUMIN 1.8 g/dl (3.4-5.0); BLOOD UREA NITROGEN 16.5 mg/dL (7-18)
[2021-01-30] MEDS: AMINO ACIDS/PROTEIN HYDROLYS 30 ML LIQUID.PKT PO SCH ×3 (08:37→17:06)
[2021-01-30] MEDS: BACITRACIN 15 GM TUBE TOPICAL OINTMENT TP SCH ×2 (08:37→12:26)
[2021-01-30 08:38] LABS: CALCIUM 8.1 mg/dL (8.5-10.1); MAGNESIUM 1.8 mg/dL (1.8-2.4)
[2021-01-30 08:39] LABS: PHOSPHOROUS 1.8 mg/dL (2.5-4.9)
[2021-01-30 08:40] LABS: BILIRUBIN,TOTAL 0.3 mg/dL (0.2-1)
[2021-01-30 08:57] LABS: CREATININE 0.2 mg/dL (0.55-1.3)
[2021-01-30] MEDS ORDERED: PT OWN MED DRAWER 7, Y5N ONE (09:48)
[2021-01-30] MEDS: LORazepam 0.5 MG TABLET PO SCH ×2 (09:52→21:16)
[2021-01-30] MEDS: LACTOBACILLUS ACIDOPHILUS 1 TABLET PO SCH (09:52)
[2021-01-30] MEDS: ASCORBIC ACID 500 MG TABLET (FP) PO SCH (09:52)
[2021-01-30] MEDS: MULTIVITAMINS (DAILY MVI) TABLET (FP) PO SCH (09:52)
[2021-01-30] MEDS: SPIRONOLACTONE 25 MG TABLET PO SCH ×2 (09:53→22:03)
[2021-01-30] MEDS: FLUDROCORTISONE ACETATE 0.1 MG TABLET (FP) PO SCH (09:53)
[2021-01-30] MEDS: MIDODRINE HCL 5 MG TABLET PO SCH ×3 (09:56→17:08)
[2021-01-30] MEDS ORDERED: FLUDROCORTISONE ACETATE 0.1 MG TABLET (FP) PO SCH (10:00)
[2021-01-30] MEDS: FAMOTIDINE 40 MG/5 ML ORAL SUSPENSION PO SCH (10:34)
[2021-01-30] MEDS ORDERED: POTASSIUM CHLORIDE TABS 20 MEQ TABLET.ER (FP) PO ONE (16:11)
[2021-01-30] MEDS ORDERED: FUROSEMIDE 40 MG TABLET (FP) PO ONE (16:11)
[2021-01-30] MEDS ORDERED: LORazepam 2 MG TABLET PO ONE (19:37)
[2021-01-30] MEDS: NAPH,MB-DB/K PH,MBDB POWDER PACKET PO SCH (21:17)
[2021-01-30] MEDS: MELATONIN 5 MG TABLETS PO SCH (22:03)
[2021-01-31] MEDS ORDERED: PT OWN MED DRAWER 7, Y5N ONE ×3 (00:04→11:40)
[2021-01-31] MEDS: VANCOMYCIN 250 MG/5 ML ORAL SOLUTION PO SCH ×4 (00:05→17:10)
[2021-01-31] MEDS: DEXAMETHASONE SOD PHOSPHATE 4 MG/1 ML VIAL IVPUSH SCH ×3 (01:04→17:11)
[2021-01-31] MEDS: HEPARIN NA (PORCINE) 5,000 UNITS/ML 1ML VIAL SQ SCH ×3 (05:10→21:44)
[2021-01-31] MEDS: BANATROL PLUS POWDER PACKET PO SCH ×3 (05:11→21:44)
[2021-01-31] MEDS: AMINO ACIDS/PROTEIN HYDROLYS 30 ML LIQUID.PKT PO SCH ×2 (08:17→17:10)
[2021-01-31] MEDS: SPIRONOLACTONE 25 MG TABLET PO SCH ×2 (09:42→21:46)
[2021-01-31 09:43] LABS: BILIRUBIN,TOTAL 0.4 mg/dL (0.2-1)
[2021-01-31] MEDS: ASCORBIC ACID 500 MG TABLET (FP) PO SCH (09:43)
[2021-01-31] MEDS: LORazepam 0.5 MG TABLET PO SCH ×2 (09:43→21:47)
[2021-01-31] MEDS: MIDODRINE HCL 5 MG TABLET PO SCH ×3 (09:43→17:11)
[2021-01-31] MEDS: LACTOBACILLUS ACIDOPHILUS 1 TABLET PO SCH (09:44)
[2021-01-31] MEDS: NAPH,MB-DB/K PH,MBDB POWDER PACKET PO SCH ×2 (09:44→21:44)
[2021-01-31] MEDS: FAMOTIDINE 40 MG/5 ML ORAL SUSPENSION PO SCH (09:45)
[2021-01-31 09:46] LABS: ALBUMIN 1.9 g/dl (3.4-5.0); CALCIUM 8.2 mg/dL (8.5-10.1)
[2021-01-31] MEDS: BACITRACIN 15 GM TUBE TOPICAL OINTMENT TP SCH (09:46)
[2021-01-31] MEDS: MULTIVITAMINS (DAILY MVI) TABLET (FP) PO SCH (09:46)
[2021-01-31 09:47] LABS: MAGNESIUM 1.9 mg/dL (1.8-2.4)
[2021-01-31 09:49] LABS: CREATININE 0.2 mg/dL (0.55-1.3); PHOSPHOROUS 2.1 mg/dL (2.5-4.9)
[2021-01-31] MEDS ORDERED: FUROSEMIDE 40 MG/4 ML INJECTABLE VIAL IVPUSH ONE (12:30)
[2021-01-31] MEDS: MELATONIN 5 MG TABLETS PO SCH (21:47)
[2021-01-31] MEDS: ACETAMINOPHEN 325 MG TABLET (FP) PO PRN (21:58)
[2021-02-01] MEDS: VANCOMYCIN 250 MG/5 ML ORAL SOLUTION PO SCH ×4 (00:11→17:25)
[2021-02-01] MEDS: DEXAMETHASONE SOD PHOSPHATE 4 MG/1 ML VIAL IVPUSH SCH ×3 (01:41→17:24)
[2021-02-01] MEDS: BANATROL PLUS POWDER PACKET PO SCH ×3 (05:34→21:02)
[2021-02-01] MEDS: HEPARIN NA (PORCINE) 5,000 UNITS/ML 1ML VIAL SQ SCH ×3 (05:35→21:02)
[2021-02-01] MEDS: AMINO ACIDS/PROTEIN HYDROLYS 30 ML LIQUID.PKT PO SCH ×2 (08:22→16:36)
[2021-02-01] MEDS: LORazepam 0.5 MG TABLET PO SCH ×2 (09:38→21:04)
[2021-02-01] MEDS ORDERED: PT OWN MED DRAWER 7, Y5N ONE (10:54)
[2021-02-01] MEDS: MULTIVITAMINS (DAILY MVI) TABLET (FP) PO SCH (10:57)
[2021-02-01] MEDS: SPIRONOLACTONE 25 MG TABLET PO SCH ×2 (10:57→21:04)
[2021-02-01] MEDS: NAPH,MB-DB/K PH,MBDB POWDER PACKET PO SCH ×2 (10:57→21:02)
[2021-02-01] MEDS: FAMOTIDINE 40 MG/5 ML ORAL SUSPENSION PO SCH (10:58)
[2021-02-01] MEDS: LACTOBACILLUS ACIDOPHILUS 1 TABLET PO SCH (10:58)
[2021-02-01] MEDS: ASCORBIC ACID 500 MG TABLET (FP) PO SCH (10:58)
[2021-02-01] MEDS: FLUDROCORTISONE ACETATE 0.1 MG TABLET (FP) PO SCH (10:58)
[2021-02-01] MEDS: MIDODRINE HCL 5 MG TABLET PO SCH ×3 (10:58→17:25)
[2021-02-01] MEDS: BACITRACIN 15 GM TUBE TOPICAL OINTMENT TP SCH (11:29)
[2021-02-01] MEDS: MELATONIN 5 MG TABLETS PO SCH (21:04)
[2021-02-02] MEDS: DEXAMETHASONE SOD PHOSPHATE 4 MG/1 ML VIAL IVPUSH SCH ×3 (02:07→21:04)
[2021-02-02] MEDS: HEPARIN NA (PORCINE) 5,000 UNITS/ML 1ML VIAL SQ SCH ×3 (05:22→21:04)
[2021-02-02] MEDS: ACETAMINOPHEN 325 MG TABLET (FP) PO PRN (05:22)
[2021-02-02] MEDS: VANCOMYCIN 250 MG/5 ML ORAL SOLUTION PO SCH ×5 (05:24→23:08)
[2021-02-02] MEDS: AMINO ACIDS/PROTEIN HYDROLYS 30 ML LIQUID.PKT PO SCH ×2 (08:32→17:31)
[2021-02-02] MEDS ORDERED: PT OWN MED DRAWER 7, Y5N ONE ×3 (09:35→23:06)
[2021-02-02] MEDS: BACITRACIN 15 GM TUBE TOPICAL OINTMENT TP SCH (09:39)
[2021-02-02] MEDS: MULTIVITAMINS (DAILY MVI) TABLET (FP) PO SCH (09:39)
[2021-02-02] MEDS: LORazepam 0.5 MG TABLET PO SCH (09:39)
[2021-02-02] MEDS: LACTOBACILLUS ACIDOPHILUS 1 TABLET PO SCH (09:39)
[2021-02-02] MEDS: ASCORBIC ACID 500 MG TABLET (FP) PO SCH (09:39)
[2021-02-02] MEDS: SPIRONOLACTONE 25 MG TABLET PO SCH ×2 (09:39→21:03)
[2021-02-02] MEDS: NAPH,MB-DB/K PH,MBDB POWDER PACKET PO SCH ×2 (09:39→21:03)
[2021-02-02] MEDS: MIDODRINE HCL 5 MG TABLET PO SCH ×3 (09:40→17:31)
[2021-02-02] MEDS: FAMOTIDINE 40 MG/5 ML ORAL SUSPENSION PO SCH (09:40)
[2021-02-02] MEDS ORDERED: FUROSEMIDE 40 MG TABLET (FP) PO ONE (13:28)
[2021-02-02] MEDS ORDERED: POTASSIUM CHLORIDE TABS 20 MEQ TABLET.ER (FP) PO ONE (13:28)
[2021-02-02] MEDS: BANATROL PLUS POWDER PACKET PO SCH ×2 (14:03→21:03)
[2021-02-02] MEDS: ALBUMIN HUMAN 25% 100 ML VIAL IVPB SCH ×2 (14:29→17:29)
[2021-02-02] MEDS: LORazepam 1 MG TABLET PO SCH (21:02)
[2021-02-02] MEDS: MELATONIN 5 MG TABLETS PO SCH (21:04)
[2021-02-02] MEDS ORDERED: traZODone HCL 50 MG TABLET (FP) PO SCH (22:00)
[2021-02-03] MEDS: MELATONIN 5 MG TABLETS PO SCH ×2 (00:33→23:53)
[2021-02-03] MEDS: HEPARIN NA (PORCINE) 5,000 UNITS/ML 1ML VIAL SQ SCH ×3 (05:59→21:03)
[2021-02-03] MEDS: VANCOMYCIN 250 MG/5 ML ORAL SOLUTION PO SCH ×4 (05:59→23:47)
[2021-02-03] MEDS: BANATROL PLUS POWDER PACKET PO SCH ×4 (05:59→21:02)
[2021-02-03 06:55] LABS: EPI CELLS 17 /uL (0-25.1); HYALINE CASTS 24 /uL (0-3.1); URINE APPEARANCE TURBID; URINE BACTERIA >9,000 /uL (0-1359); URINE BILIRUBIN NEGATIVE (NEGATIVE); URINE COLOR YELLOW; URINE GLUCOSE (UA) NEGATIVE (NEGATIVE); URINE KETONE NEGATIVE (NEGATIVE); URINE LEUK ESTERASE 3+ (NEGATIVE); URINE NITRITE NEGATIVE (NEGATIVE); URINE PROTEIN 2+ (NEGATIVE); URINE UROBILINOGEN 0.2 mg/dL (0.2-1.0); URINE WBC 24930 /uL (0-25.8)
[2021-02-03] MEDS: MULTIVITAMINS (DAILY MVI) TABLET (FP) PO SCH (09:24)
[2021-02-03] MEDS: LACTOBACILLUS ACIDOPHILUS 1 TABLET PO SCH (09:24)
[2021-02-03] MEDS: LORazepam 1 MG TABLET PO SCH ×2 (09:24→21:00)
[2021-02-03] MEDS: SPIRONOLACTONE 25 MG TABLET PO SCH (09:24)
[2021-02-03] MEDS: ASCORBIC ACID 500 MG TABLET (FP) PO SCH (09:24)
[2021-02-03] MEDS: NAPH,MB-DB/K PH,MBDB POWDER PACKET PO SCH ×2 (09:24→21:03)
[2021-02-03] MEDS: DEXAMETHASONE SOD PHOSPHATE 4 MG/1 ML VIAL IVPUSH SCH ×2 (09:25→21:03)
[2021-02-03] MEDS: AMINO ACIDS/PROTEIN HYDROLYS 30 ML LIQUID.PKT PO SCH ×2 (09:25→18:18)
[2021-02-03] MEDS ORDERED: PT OWN MED DRAWER 7, Y5N ONE ×3 (10:52→15:35)
[2021-02-03] MEDS: BACITRACIN 15 GM TUBE TOPICAL OINTMENT TP SCH (10:53)
[2021-02-03] MEDS: MIDODRINE HCL 5 MG TABLET PO SCH ×3 (10:53→18:18)
[2021-02-03] MEDS: FAMOTIDINE 40 MG/5 ML ORAL SUSPENSION PO SCH (10:53)
[2021-02-03] MEDS ORDERED: FUROSEMIDE 40 MG TABLET (FP) PO ONE (11:33)
[2021-02-03] MEDS ORDERED: POTASSIUM CHLORIDE TABS 20 MEQ TABLET.ER (FP) PO ONE (11:33)
[2021-02-03 15:50] LABS: EPI CELLS 34 /uL (0-25.1); HYALINE CASTS 7 /uL (0-3.1); PH,URINE 7.5 (5.0-8.0); URINE APPEARANCE TURBID; URINE BACTERIA 6580 /uL (0-1359); URINE BILIRUBIN NEGATIVE (NEGATIVE); URINE COLOR YELLOW; URINE GLUCOSE (UA) NEGATIVE (NEGATIVE); URINE KETONE NEGATIVE (NEGATIVE); URINE LEUK ESTERASE 3+ (NEGATIVE); URINE NITRITE POSITIVE (NEGATIVE); URINE PROTEIN 1+ (NEGATIVE); URINE UROBILINOGEN 0.2 mg/dL (0.2-1.0); URINE WBC 21723 /uL (0-25.8)
[2021-02-03 15:53] LABS: URINE RBC 372 /uL (0-23.9); YEAST NONE SEEN (NEGATIVE)
[2021-02-03 15:55] LABS: URINE RBC 372.2 /uL (0-23.9); YEAST NONE SEEN (NEGATIVE)
[2021-02-04] MEDS ORDERED: PT OWN MED DRAWER 7, Y5N ONE ×6 (06:18→20:39)
[2021-02-04] MEDS: VANCOMYCIN 250 MG/5 ML ORAL SOLUTION PO SCH ×4 (06:31→23:44)
[2021-02-04] MEDS: BANATROL PLUS POWDER PACKET PO SCH ×3 (06:31→21:58)
[2021-02-04] MEDS: HEPARIN NA (PORCINE) 5,000 UNITS/ML 1ML VIAL SQ SCH ×3 (06:32→21:59)
[2021-02-04] MEDS: MULTIVITAMINS (DAILY MVI) TABLET (FP) PO SCH (09:18)
[2021-02-04] MEDS: LACTOBACILLUS ACIDOPHILUS 1 TABLET PO SCH (09:18)
[2021-02-04] MEDS: PSYLLIUM 5.85 GM PACKET PO SCH (09:19)
[2021-02-04] MEDS: NAPH,MB-DB/K PH,MBDB POWDER PACKET PO SCH ×2 (09:19→21:59)
[2021-02-04] MEDS: ASCORBIC ACID 500 MG TABLET (FP) PO SCH (09:19)
[2021-02-04] MEDS: FAMOTIDINE 40 MG/5 ML ORAL SUSPENSION PO SCH (09:19)
[2021-02-04] MEDS: MIDODRINE HCL 5 MG TABLET PO SCH ×3 (09:19→18:37)
[2021-02-04] MEDS: BACITRACIN 15 GM TUBE TOPICAL OINTMENT TP SCH (09:20)
[2021-02-04] MEDS: AMINO ACIDS/PROTEIN HYDROLYS 30 ML LIQUID.PKT PO SCH ×2 (09:20→18:37)
[2021-02-04] MEDS: LORazepam 1 MG TABLET PO SCH ×2 (09:27→21:01)
[2021-02-04 09:55] LABS: BASO % 0.1 % (0-2.0); EOS % 0.5 % (0-4.5); HEMATOCRIT 29.5 % (32.4-45.2); HEMOGLOBIN 10.1 GM/dL (10.7-15.3); LYMPH % 11.4 % (8-40); MCH 33.1 pg (25.7-33.7); MCHC 34.4 g/dl (32.0-36.0); MEAN CELL VOLUME 96.2 fl (80-96); MEAN PLT VOLUME 7.2 fl (7.5-11.1); MONO % 4.8 % (3.8-10.2); NEUT % 83.2 % (42.8-82.8); PLATELET COUNT 241 K/MM3 (134-434); RBC 3.07 M/mm3 (3.60-5.2); RDW 19.9 % (11.6-15.6); WHITE BLOOD COUNT 4.9 K/mm3 (4.0-10.0)
[2021-02-04] MEDS ORDERED: DEXAMETHASONE 2 MG TABLET PO SCH (10:00)
[2021-02-04 10:20] LABS: CALCIUM 8.3 mg/dL (8.5-10.1)
[2021-02-04 10:22] LABS: BILIRUBIN,TOTAL 0.6 mg/dL (0.2-1); TOT PROT 4.6 g/dl (6.4-8.2)
[2021-02-04 10:24] LABS: CREATININE 0.2 mg/dL (0.55-1.3)
[2021-02-04 10:25] LABS: ALBUMIN 2.4 g/dl (3.4-5.0)
[2021-02-04] MEDS: DEXAMETHASONE 4 MG TABLET (FP) PO SCH (12:26)
[2021-02-04] MEDS: MELATONIN 5 MG TABLETS PO SCH ×2 (21:59)
[2021-02-05] MEDS ORDERED: PT OWN MED DRAWER 7, Y5N ONE ×3 (05:57→12:54)
[2021-02-05] MEDS: HEPARIN NA (PORCINE) 5,000 UNITS/ML 1ML VIAL SQ SCH ×2 (05:59→13:15)
[2021-02-05] MEDS: BANATROL PLUS POWDER PACKET PO SCH ×2 (05:59→13:16)
[2021-02-05] MEDS: VANCOMYCIN 250 MG/5 ML ORAL SOLUTION PO SCH ×2 (05:59→12:57)
[2021-02-05] MEDS: AMINO ACIDS/PROTEIN HYDROLYS 30 ML LIQUID.PKT PO SCH ×2 (09:00→17:35)
[2021-02-05] MEDS: LORazepam 1 MG TABLET PO SCH (09:00)
[2021-02-05] MEDS ORDERED: FUROSEMIDE 20 MG TABLET (FP) PO SCH (10:00)
[2021-02-05] MEDS: MULTIVITAMINS (DAILY MVI) TABLET (FP) PO SCH (10:30)
[2021-02-05] MEDS: NAPH,MB-DB/K PH,MBDB POWDER PACKET PO SCH (10:30)
[2021-02-05] MEDS: ASCORBIC ACID 500 MG TABLET (FP) PO SCH (10:30)
[2021-02-05] MEDS: LACTOBACILLUS ACIDOPHILUS 1 TABLET PO SCH (10:30)
[2021-02-05] MEDS: FAMOTIDINE 40 MG/5 ML ORAL SUSPENSION PO SCH (10:31)
[2021-02-05] MEDS: MIDODRINE HCL 5 MG TABLET PO SCH ×3 (10:31→17:35)
[2021-02-05] MEDS: DEXAMETHASONE 4 MG TABLET (FP) PO SCH (10:32)
[2021-02-05] MEDS: PSYLLIUM 5.85 GM PACKET PO SCH (10:32)
[2021-02-05] MEDS: BACITRACIN 15 GM TUBE TOPICAL OINTMENT TP SCH (10:48)
[2021-02-05] MEDS ORDERED: LORazepam 1 MG TABLET PO ONE (19:41)
[2021-02-05 20:51] VITALS: BP 119/74; PULSE 82; TEMP 97.4
== END 2021-02-05 21:36 | DRG 871 ==
LOC: FER 12:36 → FM/S 14:35 → JICU 22:56 → J6S 01-29 17:41
PROVIDERS: ADMIT Internal Medicine; ATTEND Family Medicine
PROC: 05HN33Z Insertion of Infusion Device into Left Internal Jugular Vein, Percutaneous Approach (ICD-10-PCS; principal; 2021-01-19)
PROC: B544ZZA Ultrasonography of Left Jugular Veins, Guidance (ICD-10-PCS; 2021-01-19)
DX: A41.89 Other specified sepsis (principal); R65.21 Severe sepsis with septic shock; E87.1 Hypo-osmolality and hyponatremia; N17.9 Acute kidney failure, unspecified; R18.8 Other ascites; N39.0 Urinary tract infection, site not specified; E87.2 Acidosis; A04.72 Enterocolitis due to Clostridium difficile, not specified as recurrent; R64 Cachexia; E46 Unspecified protein-calorie malnutrition; E27.40 Unspecified adrenocortical insufficiency; R19.7 Diarrhea, unspecified; N31.9 Neuromuscular dysfunction of bladder, unspecified; M41.9 Scoliosis, unspecified; R26.81 Unsteadiness on feet; K21.9 Gastro-esophageal reflux disease without esophagitis; G62.9 Polyneuropathy, unspecified; R10.9 Unspecified abdominal pain; F41.8 Other specified anxiety disorders; E83.39 Other disorders of phosphorus metabolism; I95.9 Hypotension, unspecified; D72.829 Elevated white blood cell count, unspecified; K76.89 Other specified diseases of liver; K59.09 Other constipation; K44.9 Diaphragmatic hernia without obstruction or gangrene; K29.70 Gastritis, unspecified, without bleeding; R62.7 Adult failure to thrive; Z68.21 Body mass index [BMI] 21.0-21.9, adult; Z74.09 Other reduced mobility
CPT/HCPCS: 36415; 36430; 71045-TC-FY; 74018-TC-FY; 74176-TC; 74177-TC; 76700-TC; 80048; 80053; 81003; 81015; 82436; 82533; 82550; 82607; 82962; 83540; 83550; 83605; 83735; 83930; 83935; 84100; 84132; 84133; 84300; 84439; 84443; 84484; 85025; 85027; 85610; 85730; 86140; 86850; 86900; 86901; 86922; 87040; 87086; 87186; 87324; 87449; 87899; 93005; 93010; 93306-TC; 94010; 97162-GP; 99291; C9803; J0131; J0834; J1644; P9058; Q9967; U0003; U0005